=== PATIENT | male | born 1935 | race African-American/Black ===

== ENCOUNTER 2017-01-26 16:16 | Outpatient (CLI) | payer MEDICARE, BC ==
--- NOTE | 2017-01-26 19:28 | CT ---
CT CHEST WITHOUT CONTRAST: Technique: Multiple axial tomograms were obtained through IV enhancement. History: Exam is performed following a low-dose protocol. History is smoker for 18-20 years. Asbestos exposure. History of prostate CA. FINDINGS: Linear stranding is seen in the left lower lobe. There appears to be some associated linear atelectas is. No evidence of significant pulmonary mass or nodule. There is hyperexpansion of the flattened ellen phragms suggesting changes of COPD. Nonspecific mediastinal lymph nodes are noted. There is a supraca rinal lymph node measuring approximately 1.5 cm. Images through the upper abdomen show numerous low d ensity lesions involving the liver indicating hepatic cysts. These have been described previously. IMPRESSION: 1. No evidence of significant pulmonary nodule identified. Chronic atelectasis and stranding in the l eft lower lobe. POS: [facility]
== END 2017-01-26 16:17 | disposition home or self-care (01) ==
LOC: CT 16:16
PROVIDERS: ATTEND Family Medicine
DX: F17.210 Nicotine dependence, cigarettes, uncomplicated (principal); J98.11 Atelectasis
CPT/HCPCS: G0297

== ENCOUNTER 2017-12-17 13:22 | Inpatient (IN) | payer MEDICARE, BC ==
[2017-12-17 13:45] LABS: #Eosinphils 0.1 thou/uL (0.0-0.7); #Lymphocytes 0.7 thou/uL (1.20-3.40); #Monocytes 0.5 thou/uL (0.11-0.59); #Neutrophils 3.5 thou/uL (1.40-6.50); %Basophils 0.2 % (0.0-1.0); %Eosinophils 1.6 % (0.0-10.0); %Lymphocytes 13.7 % (21.0-51.0); %Monocytes 10.9 % (0.0-10.0); %Neutrophils 73.7 % (42.0-75.0); Mean Corpuscular Volume 90.5 fL (78.0-98.0); Mean Platelet Volume 8.8 fL (7.4-10.4); Platelet Count 137 thou/uL (130-400); RBC Distribution Width 14.5 % (11.5-14.5); Red Blood Cell (RBC) Count 4.83 mill/uL (4.70-6.10); White Blood Cell (WBC) Count 4.8 thou/uL (4.8-10.8)
[2017-12-17 13:49] LABS: INR-International Normal Ratio 1.1
[2017-12-17 13:54] LABS: ALT (SGPT) 17 U/L (8-55); AST (SGOT) 16 U/L (5-34); Albumin 4.1 g/dL (3.4-4.8); Alkaline Phosphatase 52 U/L (40-150); Anion Gap 11 mmol/L (10-20); BUN (Urea Nitrogen) 43 mg/dL (8.4-25.7); Bilirubin, Total 0.6 mg/dL (0.2-1.2); CK (CPK) 57 U/L (30-200); Calc. Creatinine Clearance 0 mL/min (70-130); Calcium 9.8 mg/dL (7.8-10.44); Carbon Dioxide 26 mmol/L (23-31); Chloride 111 mmol/L (98-107); Estimated GFR-MDRD 26; Globulin 3.3 g/dL (2.4-3.5); Glucose 122 mg/dL (83-110); Potassium 4.6 mmol/L (3.5-5.1); Protein, Total 7.4 g/dL (5.8-8.1); Sodium 143 mmol/L (136-145)
[2017-12-17 13:58] LABS: CKMB 1.7 ng/mL (0-6.6); Troponin I 0.012 ng/mL (< 0.028)
--- NOTE | 2017-12-17 14:10 | CT ---
CT OF THE BRAIN WITHOUT CONTRAST: Date: 12/17/17 INDICATION: Level II stroke alert for right-sided facial droop that began this morning. COMPARISON: CT of brain dated 06/11/14. FINDINGS: There is diffuse cerebral and cerebellar atrophy, which is stable. 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 No definite acute infarct, hemorrhage, or hydrocephalus is pres ent. The mastoid air cells and paranasal sinuses are clear. The skull is intact. IMPRESSION: No acute intracranial abnormality. Findings called to Dr. Padilla at 1347 hours on 12/17/17. CODE CR. POS: [facility]
--- NOTE | 2017-12-17 15:35 | PDOC.FPRHP ---
- History of Present Illness Chief Complaint: Facial droop History of Present Illness: Mr. Arguelles presents today from home with his daughter after reports of right sided facial droop by home health. Pt is a poor historian, most of the history has been obtained from medical records, EMS, and family. R sided facial droop today, resolved quickly. No residual weakness, syncope, complaints of chest pain/palpitation, reports of numbness/tingling or recent illness. He was recently started on megace for weight loss. he has been on dialysis in the past and received radiation and chemo for prostate cancer. ED Course: CBC, CMP, CT head, coag - Allergies/Adverse Reactions Allergies Allergy/AdvReac Type Severity Reaction Status Date / Time No Known Allergies Allergy Verified 12/17/17 17:15 - Home Medications Medication Instructions Recorded Confirmed Type Amlodipine [Norvasc] 10 mg PO DAILY 02/16/14 12/17/17 History Losartan Potassium [Cozaar] 50 mg PO DAILY 02/16/14 12/17/17 History busPIRone HCl [Buspar] 10 mg PO DAILY 02/16/14 12/17/17 History Atorvastatin Calcium 20 mg PO HS 12/17/17 12/17/17 History Carvedilol 12.5 mg PO DAILY 12/17/17 12/17/17 History Cholecalciferol (Vitamin D3) 2,000 unit PO DAILY 12/17/17 12/17/17 History [Vitamin D3] Ferrous Sulfate [Iron] 325 mg PO DAILY 12/17/17 12/17/17 History Megestrol Acetate [Megace] 40 mg PO DAILY 12/17/17 12/17/17 History Multivit-Min/FA/Lycopen/Lutein 1 each PO DAILY 12/17/17 12/17/17 History [Centrum Silver Men Tablet] Potassium Chloride 10 meq PO DAILY 12/17/17 12/17/17 History Spironolactone [Aldactone] 25 mg PO DAILY 12/17/17 12/17/17 History - History PMHx: HTN, HLD, aneurysm in 2002, prostate cancer, suprapubic catheter PSHx: denies FHx:non-contributory Social:1/3 ppd smoker, no alcohol, no drugs - Review of Systems General: denies: fever/chills, fatigue Eyes: denies: vision changes ENT: denies: nasal congestion, rhinorrhea Respiratory: denies: cough, shortness of breath Cardiovascular: denies: chest pain, palpitation Gastrointestinal: denies: nausea, vomiting, diarrhea, abdominal pain, GI bleeding Genitourinary: denies: dysuria Skin: denies: rashes Musculoskeletal: denies: pain Neurological: denies: numbness, weakness - Vital signs BP: [114/76] HR: [97] RR: [16] Tmax: [98.2] Pox: [100]% on [RA] Wt: [63kg] - Physical Exam Constitutional: NAD, well developed HEENT: normocephalic and atraumatic, EOMI, grossly normal vision, grossly normal hearing, MMM Neck: FROM, trachea midline Chest: no-tender to palpation, no lesions Heart: normal S1/S2, no murmurs/rubs/gallops, other (irregularly irregular rhythm) Lungs: CTAB, no respiratory distress, good air movement, no rales/rhonchi Abdomen: soft, non-tender, bowel sounds present Musculoskeletal: normal structure, normal tone, ROM grossly normal Neurological: no focal deficit, CN II-XII intact, normal sensation, other (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) Skin: no rash/lesions, good turgor Heme/Lymphatic: no unusual bruising or bleeding Psychiatric: normal mood and affect, other (demented) FMR H&P: Results - Labs Result Diagrams: 12/17/17 13:36 12/17/17 13:36 Lab results: WBC 4.8 thou/uL (4.8-10.8) 12/17/17 13:36 Hgb 14.0 g/dL (14.0-18.0) 12/17/17 13:36 Hct 43.7 % (42.0-52.0) 12/17/17 13:36 MCV 90.5 fL (78.0-98.0) 12/17/17 13:36 Plt Count 137 thou/uL (130-400) 12/17/17 13:36 Neutrophils % 73.7 % (42.0-75.0) 12/17/17 13:36 Sodium 143 mmol/L (136-145) 12/17/17 13:36 Potassium 4.6 mmol/L (3.5-5.1) 12/17/17 13:36 Chloride 111 mmol/L (98-107) H 12/17/17 13:36 Carbon Dioxide 26 mmol/L (23-31) 12/17/17 13:36 BUN 43 mg/dL (8.4-25.7) H 12/17/17 13:36 Creatinine 2.86 mg/dL (0.6-1.3) H 12/17/17 13:36 Glucose 122 mg/dL (83-110) H 12/17/17 13:36 Calcium 9.8 mg/dL (7.8-10.44) 12/17/17 13:36 Total Bilirubin 0.6 mg/dL (0.2-1.2) 12/17/17 13:36 AST 16 U/L (5-34) 12/17/17 13:36 ALT 17 U/L (8-55) 12/17/17 13:36 Alkaline Phosphatase 52 U/L (40-150) 12/17/17 13:36 Creatine Kinase 57 U/L (30-200) 12/17/17 13:36 CK-MB (CK-2) 1.7 ng/mL (0-6.6) 12/17/17 13:36 Serum Total Protein 7.4 g/dL (5.8-8.1) 12/17/17 13:36 Albumin 4.1 g/dL (3.4-4.8) 12/17/17 13:36 - EKG Interpretation EKG: irregularly irregular rhythm, no ST elevation FMR H&P: A/P - Problem List (1) TIA (transient ischemic attack) Current Visit: Yes Status: Acute Code(s): G45.9 - TRANSIENT CEREBRAL ISCHEMIC ATTACK, UNSPECIFIED (2) Atrial fibrillation Current Visit: Yes Status: Acute Code(s): I48.91 - UNSPECIFIED ATRIAL FIBRILLATION (3) HTN (hypertension) Current Visit: Yes Status: Acute Code(s): I10 - ESSENTIAL (PRIMARY) HYPERTENSION (4) Prostate CA Current Visit: Yes Status: Acute Code(s): C61 - MALIGNANT NEOPLASM OF PROSTATE (5) Chronic kidney disease Current Visit: Yes Status: Acute Code(s): N18.9 - CHRONIC KIDNEY DISEASE, UNSPECIFIED (6) Weight loss Current Visit: Yes Status: Acute (7) Dementia Current Visit: Yes Status: Acute Code(s): F03.90 - UNSPECIFIED DEMENTIA WITHOUT BEHAVIORAL DISTURBANCE - Plan R sided facial droop, resolved - possible TIA vs residual bells palsy - NIH scale of 1 now, no residual weakness - CT head negative - consider MRI in AM - carotid US and Echo Atrial fibrillation - new onset, asymptomatic - Echo, TSH, Mg - monitor vitals - consider adding metoprolol - speak with family about individualized pt care regarding anti-coagulation Prostate CA - hx of radiation and chemo - palliative/cm consult for placement HTN - continue home medications CKD - Cr. 2.84, increased from baseline - avoid nephrotoxic meds, continue to monitor Weight loss - consider DCing megace - palliative consult Dementia - attempt to speak with daughter regarding code status and placement Code: full (follow up with daughter) ppx: [facility] Disposition/LOS: admit to tele, anti-coagulation not deemed to be indicated at this point possibly contraindicated 2/2 fall risk FMR H&P: Upper Level - Pertinent history This is an 82 yo M who comes in for R sided facial droop as reported by family. Patient is a poor historian with a history of dementia, as such history is taken from the chart. Patient was able to walk 15 steps on arrival to ED. Patient denied N/V/D, SOB, or chest pain. R sided facial droop onset this morning. 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 Family also states patient had a brain aneurysm in 2012. Chart review shows patient has undergone chemo and radiation for prostate cancer and had a suprapubic cath in for 5 years. He was started on megace for weight loss. - Pertinent findings General: NAD, alert and oriented x3 HEENT: PERRLA, EOMI, normal sclera, canal is without erythema or lesion Neck: Supple. Full ROM. Heart/Cardiovascular System: No r/m/g. irregularly irregular rhythm. Cap refill < 3 seconds, good pulses in all extremities Lungs/Respiratory System: clear to auscultation bilaterally. No increased work of breathing. Room air. Abdomen/Gastro-Intestinal System: non-tender, normal bowel sounds, no masses, no organomegaly Extremeties: Warm extremities. No cyanosis or edema. Neuro: L sided facial droop is chronic. strategic manager strength equal bilaterally. lifts leg off bed on both sides. Psychiatry: Awake, Alert and cooperative with exam Skin/ Integumentory: No lesions, rashes, or ulcers Musculoskeletal: Full ROM, Strength 5/5 in all 4 extremities - Plan Date/Time: 12/17/171532 I, Byron Villaseñor MD, have evaluated this patient and agree with findings/plan as outlined by internet ecommerce specialist resident. Pertinent changes/additions are listed here. # R sided facial droop - NIH 1 on arrival to ED - CT head negative - Neuro exam reassuring - permissive htn for 24 hrs # Atrial fibrillation - HR 80s-100s - new onset - metoprolol - echo, mag, tsh - telemetry # Prostate Cancer - history of chemo and radiation x2 - suprapubic cath for 5 years # HTN - coreg at home - hold for now, permissive htn # CKD - Cr2.84, 2.4 one month ago # Weight loss - daily weights - on megace, will hold for now # Dementia - MMSE 02/28 in August - family not available, did not answer phone call Code: full, family not available Fluids: none Diet: ST eval Dispo: 1-2 days Attending Addendum - Attending Addendum Date/Time: 12/17/172035 I personally evaluated the patient and discussed the management with Dr. Gregorio and Charleen. I agree with and repeated the History, Examination, Assessment and Plan documented above with any addition or exceptions noted below.
[2017-12-17] MEDS ORDERED: Enoxaparin Sodium 60 MG/0.6 ML SYRINGE ONE (15:44)
[2017-12-17] MEDS ORDERED: Acetaminophen 325 MG TAB PO PRN (17:06)
[2017-12-17 17:28] LABS: Troponin I 0.016 ng/mL (< 0.028)
[2017-12-17 17:47] VITALS: BMI 19.8
--- NOTE | 2017-12-17 19:52 | ULT ---
CAROTID DUPLEX SONOGRAM: 12/17/17 HISTORY: Vascular disease. TIA. FINDINGS: RIGHT: Color and spectral doppler evaluation, peak systolic velocity of 39 cm/s and IC to CC ratio suggests no hemodynamically significant stenosis within the extracranial right ICA. Antegrade flow within the vertebral artery. LEFT: Minimal plaque. Color and spectral doppler evaluation, peak systolic velocity of 45 cm/s and IC to CC ratio of 1.0 suggests no hemodynamically significant stenosis within the extracranial left ICA. Ante grade flow within the vertebral artery. IMPRESSION: No significant plaque. No sonographic evidence of significant extracranial ICA stenosis. POS: [facility]
--- NOTE | 2017-12-17 19:58 | PDOC.EVN ---
Event Note - Event Note Event Note: HAS-BLED 3- high risk for bleeding ppx heparin <Byron Villaseñor - Last Filed: 12/17/17 19:56> - Event Note Event Note: Agree with above. Melia <Theresa Espitia - Last Filed: 12/18/17 03:35>
[2017-12-17] MEDS: Heparin 5,000 UNITS/ML VIAL SC SCH (20:41)
[2017-12-18 05:43] LABS: Cardiac Risk 4.2 (Less than 4.5)
--- NOTE | 2017-12-18 06:22 | PDOC.FM ---
- Subjective Subjective: Mr. Arguelles is resting comfortably in bed, he has no complaints at this time and would like to go home. - Objective Vital Signs & Weight: Vital Signs (12 hours) Temp Pulse Resp BP Pulse Ox 12/18/17 04:00 98.7 F 112 H 16 122/85 94 L 12/18/17 00:00 99.4 F 85 20 125/67 96 12/17/17 20:00 99.3 F 95 24 H 120/73 97 Weight Weight 62.596 kg I&O: 12/16/17 12/17/17 12/18/17 06:59 06:59 06:59 Intake Total 180 Balance 180 Result Diagrams: 12/17/17 13:36 12/17/17 13:36 Phys Exam - Physical Examination Constitutional: NAD HEENT: moist MMs Respiratory: clear to auscultation bilateral Cardiovascular: no significant murmur, no rub, irregular Gastrointestinal: soft, no distention Musculoskeletal: no edema, pulses present Psychiatric: normal affect Skin: no rash Dx/Plan (1) TIA (transient ischemic attack) Code(s): G45.9 - TRANSIENT CEREBRAL ISCHEMIC ATTACK, UNSPECIFIED Status: Acute (2) Atrial fibrillation Code(s): I48.91 - UNSPECIFIED ATRIAL FIBRILLATION Status: Acute (3) HTN (hypertension) Code(s): I10 - ESSENTIAL (PRIMARY) HYPERTENSION Status: Acute (4) Prostate CA Code(s): C61 - MALIGNANT NEOPLASM OF PROSTATE Status: Acute (5) Chronic kidney disease Code(s): N18.9 - CHRONIC KIDNEY DISEASE, UNSPECIFIED Status: Acute (6) Weight loss Status: Acute (7) Dementia Code(s): F03.90 - UNSPECIFIED DEMENTIA WITHOUT BEHAVIORAL DISTURBANCE Status: Acute - Plan Plan: R sided facial droop, resolved - possible TIA vs residual bells palsy - NIH scale of 1 now, no residual weakness - CT head negative - carotid US negative for stenosis Atrial fibrillation - new onset, asymptomatic - Echo, TSH, Mg - monitor vitals - consider adding metoprolol - speak with family about individualized pt care regarding anti-coagulation, heparin ppx for now Prostate CA - hx of radiation and chemo - palliative/cm consult for placement HTN - continue home medications CKD - Cr. 2.84, increased from baseline - avoid nephrotoxic meds, continue to monitor Weight loss - DC megace - palliative consult Dementia - attempt to speak with daughter regarding code status and placement Code: full (follow up with daughter) ppx: hep Dispo: poss DC today
[2017-12-18] MEDS ORDERED: Carvedilol 6.25 MG TAB PO SCH ×3 (09:06→12:00)
[2017-12-18] MEDS: Heparin 5,000 UNITS/ML VIAL SC SCH ×2 (09:17→20:39)
[2017-12-18] MEDS ORDERED: Multivitamin W/ Minerals 1 TAB PO SCH (09:30)
[2017-12-18] MEDS ORDERED: busPIRone HCl 10 MG TAB PO SCH (09:30)
[2017-12-18] MEDS ORDERED: Megestrol Acetate 40 MG TAB PO SCH (09:30)
[2017-12-18] MEDS ORDERED: Ferrous Sulfate 325 MG TAB PO SCH (09:30)
[2017-12-18] MEDS ORDERED: Spironolactone 25 MG TAB PO SCH (09:30)
[2017-12-18] MEDS ORDERED: Potassium Chloride 10 MEQ TAB PO SCH (09:30)
--- NOTE | 2017-12-18 11:38 | PRG ---
DATE OF SERVICE: 12/18/2017 Mr. Arguelles is a pleasant 82-year-old black male patient who was admitted with a possible right facial droop which evidently has resolved. On my exam he does, however, still appear to have a right facial droop, but I am not certain whether this is new or old. In any event, I think we will wait and proc eed with a TIA type workup to include studies of the brain vasculature as well as the carotids. He h ad also developed some atrial fibrillation and so an echo is in order. In the meantime, we need to m prabhakar a decision with the family and the patient regarding using ____ versus aspirin for his atrial fib rillation. He evidently has a rather high HAS-BLED score and high CHADS-VASc score. We will at leas t place him on aspirin, atorvastatin, and control blood pressure for his likely transient ischemic at tack. We will proceed with an MRI to rule out stroke.
--- NOTE | 2017-12-18 13:10 | CON ---
DATE OF CONSULTATION: 12/18/2017 CONSULTING PHYSICIAN: Merly Gastelum M.D. REQUESTING PHYSICIAN: [facility]. REASON FOR CONSULTATION: Advanced chronic kidney disease. IMPRESSION: 1. Advanced chronic kidney disease stage 4, more or less stable with a slight elevation in the creat inine. 2. Acute on chronic kidney disease. This is likely hemodynamically mediated in the context of cardi ac arrhythmia. 3. Chronic hypokalemia on potassium supplementation, stable at this point. PLAN: 1. Atrial fibrillation with rapid ventricular response really needs to be addressed. Patient, at th is point is not rate controlled. The patient's heart rate still in the 120-130 range and patient is very symptomatic. We will strongly recommend Cardiology consultation as well as adjustment in the an tiarrhythmic agents that has been used at this point as patient is still very short of breath. 2. Renally dose all medications per low GFR and avoid potentially nephrotoxic agents. 3. Further management to be dependent on the clinical course. HISTORY OF PRESENT ILLNESS: An 82-year-old gentleman known to my chronic kidney disease clinic who h as maintained a stable chronic kidney disease level for quite some time. The patient presented here with shortness of breath and noted to be in atrial fibrillation with rapid ventricular response. At this time of dictation, the patient is still very symptomatic, unable to complete a full sentence, us ing accessory muscles for breathing. The patient presented with a facial droop and incidentally foun d to be in atrial fibrillation with rapid ventricular response. Otherwise, no other significant late ralizing sign at this point. PAST MEDICAL HISTORY: Significant for chronic kidney disease stage 4, hypertension, dyslipidemia, pr ostate cancer status post suprapubic catheter due to chronic obstructive uropathy. MEDICATIONS: Reviewed and as documented on [employer]. SOCIAL HISTORY: Significant for tobacco use. No alcohol, no illicit drug use. REVIEW OF SYSTEMS: As documented in the body of the history. All the other systems were reviewed an d found not to be significantly related to presenting illness. PHYSICAL EXAMINATION: GENERAL: The patient was found to be in some respiratory distress, noted with the following vital si gns. VITAL SIGNS: Blood pressure 131/89, afebrile, temperature 98.5, pulse 86, respiratory rate 16, O2 sa t 98%. HEENT: Unremarkable. CARDIOVASCULAR SYSTEM: First and second heart sounds were heard. RESPIRATORY SYSTEM: Clear to auscultation anteriorly. DIGESTIVE SYSTEM: Reviewed a benign abdomen. EXTREMITIES: No peripheral edema. SUMMARY: An 82-year-old gentleman with advanced chronic kidney disease stage 4, who presented here w ith facial droop and noted to be in atrial fibrillation with rapid ventricular response. Thank you for this consultation. We will follow with you.
[2017-12-18] MEDS ORDERED: Lorazepam 0.5 MG TAB PO PRN (14:31)
[2017-12-18] MEDS: Carvedilol 6.25 MG TAB PO SCH (17:11)
--- NOTE | 2017-12-18 20:16 | MRI ---
MRI OF BRAIN WITHOUT CONTRAST: 12/18/17 HISTORY: Right sided facial droop since this morning. History of left sided palsy. COMPARISON: None. CORRELATION: Noncontrast head CT 12/17/17. FINDINGS: There are small areas of hypointensity involving the left frontal, right temporal subcortical white m atter along with the right periventricular white matter, left caudate nucleus, left brachium pontis w hich are presumed to be due to hemosiderin deposition from remote hemorrhagic lacunar infarcts. A rem ote lacunar infarct is also suspected in the medial left cerebellar hemisphere. No evidence of acute parenchymal hemorrhage. No midline shift. Basilar cisterns are patent. No parenchymal mass. Age appropriate atrophy. Chronic small vessel ischemic changes are noted. Central arterial flow voids are maintained. Absent restricted diffusion. Mild mucosal thickening of the sinuses. The calvarium has a normal T1 marrow signal intensity. Midline brain parenchymal structures are unrem arkable. IMPRESSION: 1. Age appropriate atrophy. 2. Chronic small vessel ischemic changes of the white matter. 3. Absent restricted diffusion. 4. No acute infarct. POS: [facility]
[2017-12-18] MEDS: Atorvastatin Calcium 20 MG TAB PO SCH (20:39)
--- NOTE | 2017-12-18 23:41 | CON ---
DATE OF CONSULTATION: 12/18/2017 INDICATION FOR CONSULTATION: Atrial fibrillation with rapid ventricular response. HISTORY OF PRESENT ILLNESS: This is an 82-year-old patient who was admitted after the home healthcar e worker noticed that he was having some right-sided facial twitching and was brought to the emergenc y room. He was then admitted with rule out stroke protocol. There has been no new stroke. He has h ad a history of Lee's palsy in the past. 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 He has had some minimal residual associated with this. He did have CT scan which did not show any new e vents. I believe he is scheduled for an MRI or perhaps it has already been done, but did not see the results yet. At that time he was admitted, he had atrial fibrillation with rapid ventricular respon se. In the interim, he has converted to normal sinus rhythm this afternoon. His rate is under reaso nable control at this time, the heart rate is approximately 83 beats per minute. There were no acute ST segment changes noted. At this time, he is comfortable and he is eating dinner. He has had no p revious cardiac history except for hypertension. For his past medical history, social history, review of systems, medications and allergies, refer to notes already dictated by the nurse practitioner. PAST MEDICAL HISTORY: Briefly, his past medical history is associated with chronic kidney disease. He has a suprapubic catheter. He had a prostate obstruction. After the suprapubic catheter was plac ed, he was able to avoid the dialysis. At this time, he may still not on dialysis and may escape thi s entirely as long as he has his catheter placed. He also has a history of hypokalemia which has bee n an ongoing problem. He has a history of cerebral aneurysm which ruptured in the past. He also has a history of dyslipidemia. PHYSICAL EXAMINATION: GENERAL: Reveals a well-developed, well-nourished, very pleasant gentleman who is in no acute distre ss at this time. He is alert, he is oriented. He is eating dinner. VITAL SIGNS: Blood pressure is elevated at 143/91 and then recheck was 155/100; earlier today, blood pressure was 130/79. His temperature is 99.1, heart rate 85 and regular at this time, respiratory r ate 16. HEENT: Shows head to be normocephalic and atraumatic. He did not hear any significant bruits. CHEST: Clear to auscultation without rales, rhonchi or wheezing. CARDIOVASCULAR: Exam reveals a regular rate and rhythm, normal S1, S2. I cannot hear an S3 nor an S 4. He has no significant murmurs, heaves, thrills, bruits or rubs. ABDOMEN: Soft and nontender. Positive bowel sounds are present. EXTREMITIES: Show no clubbing, cyanosis or edema. NEUROLOGIC: I did not see any gross focal motor deficits at this time. SKIN: Warm and dry. IMAGING: EKG at this time from tele monitor shows a sinus rhythm. LABORATORY DATA: Shows a hemoglobin of 14, WBC of 4.8. His troponin I's are negative for myocardial infarction. MB is 1.7. Cholesterol shows an LDL of 94, blood sugars in the 90s. Potassium is 4.6, creatinine is 2.86 with a BUN of 43. His creatinine usually runs anywhere between 1.94 and 1.82 christy k in 2011; recently has been in 2.29-2.86, but otherwise appears to be stable. IMPRESSION: 1. New onset atrial fibrillation with rapid ventricular response, which has converted back to a norm al sinus rhythm. He is on beta-blockers in the form of carvedilol 12.5 mg b.i.d. He has also been g iven beta blockers, but these are discontinued. Previously, he was on metoprolol. This is now in [facility]. just remains on the Coreg. He is also on spironolactone and atorvastatin. At this time, I w ould continue the present medications. Should he develop further atrial arrhythmias or atrial fibril lation, we may need to add a more potent antiarrhythmic medication such as amiodarone in this gentlem an. He is not a candidate from multiple other antiarrhythmics due to his renal failure. 2. Hypertension. We will leave this up to discretion of the reports analyst to deal with his hypertens ion. He may benefit from undergoing stress testing to rule out evidence for underlying coronary truong ry disease as the possible etiology of the atrial fibrillation. He has an echocardiogram scheduled. We will evaluate the echocardiogram to see whether or not there is any cardiomyopathy or structural abnormalities. Otherwise, he appears to be relatively stable from a cardiac standpoint at this time. He has also been given heparin 5000 units b.i.d. He may need to start oral anticoagulation, would advise either Coumadin or Xarelto in this patient, but with a history of an intracerebral bleed in th e past, we will need to certainly consider whether or not he is at increased risk of bleed versus inc reased risk of having a CVA with the atrial fibrillation and not being on oral anticoagulation, may n eed to undergo a discussion with a neurologist to determine whether or not he is a safe candidate to start oral anticoagulation. Once we reviewed the results of these stress tests, the echocardiogram t hat we may need to proceed with stress testing in this gentleman.
--- NOTE | 2017-12-19 06:17 | PDOC.FM ---
- Subjective Subjective: Mr. Arguelles is resting comfortably in bed, he has no complaints at this time and would like to go home. - Objective MAR Reviewed: Yes Vital Signs & Weight: Vital Signs (12 hours) Temp Pulse Resp BP Pulse Ox 12/19/17 03:55 87 16 129/69 98 12/18/17 23:17 99.3 F 94 21 H 138/84 96 12/18/17 19:20 98.4 F 95 24 H 113/80 98 Weight Weight 62.596 kg I&O: 12/17/17 12/18/17 12/19/17 06:59 06:59 06:59 Intake Total 690 480 Output Total 875 Balance 690 -395 Result Diagrams: 12/17/17 13:36 12/17/17 13:36 <Margot Borja - Last Filed: 12/19/17 09:29> - Objective Vital Signs & Weight: Vital Signs (12 hours) Temp Pulse Resp BP Pulse Ox 12/19/17 11:30 98.5 F 112 H 20 112/79 96 12/19/17 09:33 93 20 98 12/19/17 07:34 98.5 F 120 H 20 132/88 100 12/19/17 03:55 87 16 129/69 98 Weight Weight 62.596 kg I&O: 12/18/17 12/19/17 12/20/17 06:59 06:59 06:59 Intake Total 690 660 Output Total 875 Balance 690 -215 Result Diagrams: 12/17/17 13:36 12/19/17 08:31 <Tenzin Jarrell - Last Filed: 12/19/17 13:23> Phys Exam - Physical Examination Constitutional: NAD HEENT: moist MMs Respiratory: no wheezing, clear to auscultation bilateral Cardiovascular: RRR, no significant murmur, no rub Gastrointestinal: soft, non-tender, no distention, positive bowel sounds Musculoskeletal: pulses present Neurological: moves all 4 limbs Psychiatric: normal affect <Margot Borja - Last Filed: 12/19/17 09:29> Dx/Plan (1) Atrial fibrillation Code(s): I48.91 - UNSPECIFIED ATRIAL FIBRILLATION Status: Acute (2) Chronic kidney disease Code(s): N18.9 - CHRONIC KIDNEY DISEASE, UNSPECIFIED Status: Acute (3) Dementia Code(s): F03.90 - UNSPECIFIED DEMENTIA WITHOUT BEHAVIORAL DISTURBANCE Status: Acute (4) HTN (hypertension) Code(s): I10 - ESSENTIAL (PRIMARY) HYPERTENSION Status: Acute (5) Prostate CA Code(s): C61 - MALIGNANT NEOPLASM OF PROSTATE Status: Acute (6) TIA (transient ischemic attack) Code(s): G45.9 - TRANSIENT CEREBRAL ISCHEMIC ATTACK, UNSPECIFIED Status: Acute (7) Weight loss Status: Acute - Plan Plan: This is an 82 yo M here for right facial droop that has since resolved and new onset afib. R sided facial droop, resolved - possible TIA vs residual bells palsy - NIH scale of 1 now, no residual weakness - CT head negative - carotid US negative for stenosis Atrial fibrillation - new onset, asymptomatic - Echo: 45-50% EF, trace MR and TR - Will continue to monitor VS - Cardiology consulted, appreciate recs: Dr. Marroquin states to keep with medication regimen of spironolactone, coreg, and statin. Consider stress testing. Patient in afib/flutter throughout the night. Cards saw this morning and started patient on amio PO. - speak with family about individualized pt care regarding anti-coagulation, heparin ppx for now Prostate CA - hx of radiation and chemo - palliative/cm consult for placement HTN - continue home medications CKD - Cr. 2.84 on admission, increased from baseline - avoid nephrotoxic meds, continue to monitor Weight loss - DC megace - palliative consult Dementia - attempt to speak with daughter regarding code status and placement Code: full (follow up with daughter) ppx: hep Dispo: per cards recs <Margot Borja - Last Filed: 12/19/17 09:29> Attending Addendum - Attending Addendum Date/Time: 12/19/17 1323 I personally evaluated the patient and discussed the management with Dr. Borja I agree with the History, Examination, Assessment and Plan documented above with any addition or exceptions noted below. Appreciate recommendations from Cardiology. <Tenzin Jarrell - Last Filed: 12/19/17 13:23>
--- NOTE | 2017-12-19 08:39 | PDOC.CTH ---
Cardiology Progress Note - Subjective The pt seen and examined. No cardiac complaints at this time. Tele record showed HR has been 90-150s. - Objective Vital Signs Temp Pulse Resp BP Pulse Ox 12/19/17 07:34 98.5 F 120 H 20 132/88 100 12/19/17 03:55 87 16 129/69 98 12/18/17 23:17 99.3 F 94 21 H 138/84 96 Weight 138 lb 12/18/17 12/19/17 12/20/17 06:59 06:59 06:59 Intake Total 690 660 Output Total 875 Balance 690 -215 - Physical Examination General/Neuro: other: (self) Lungs: CTA Heart: other: (irregular) Abdomen: soft Extremities: other: (No edema) - Telemetry Telemetry Rhythm: Afib 90-150s - Labs Result Diagrams: 12/17/17 13:36 12/17/17 13:36 Troponin/CKMB CK-MB (CK-2) 1.7 ng/mL (0-6.6) 12/17/17 13:36 Troponin I 0.016 ng/mL (< 0.028) 12/17/17 16:56 - Assessment/Plan 1. Afib with RVR - HR has been 90-150s last night. Will start Amiodarone PO 400mg BID for 2wks, 200mg BID for 2wks, then change to 200mg qd. On Heparin BID ; He has Hx of Cerebral aneurysm with raptured in 2002 2. Rt sided facial droop/bells palsy? 3. HTN - stable with current meds 4. 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 Hx of Cerebral aneurysm with raptured in 2002 - 6. Prostate Ca with suprapubic cath - 7. Dementia MAR reviewed * Echo on 12/18/17 showed EF 45-50%, trace MR, trace TR, mild VA, small pericardial effusion, and AFib. Review of Systems - Review of Systems Constitutional: reports: no symptoms reported EENTM: reports: no symptoms reported Respiratory: reports: no symptoms reported Cardiac (ROS): reports: no symptoms reported ABD/GI: reports: no symptoms reported : reports: no symptoms reported Musculoskeletal: reports: no symptoms reported Skin: reports: no symptoms reported
[2017-12-19] MEDS ORDERED: Ferrous Sulfate 325 MG TAB PO SCH (09:00)
[2017-12-19] MEDS ORDERED: Megestrol Acetate 40 MG TAB PO SCH (09:00)
[2017-12-19] MEDS ORDERED: Carvedilol 6.25 MG TAB PO SCH ×2 (09:00)
[2017-12-19 09:14] LABS: Albumin 3.2 g/dL (3.4-4.8); Anion Gap 9 mmol/L (10-20); BUN (Urea Nitrogen) 47 mg/dL (8.4-25.7); BUN/Creatinine Ratio 18.15; Calc. Creatinine Clearance 20 mL/min (70-130); Carbon Dioxide 24 mmol/L (23-31); Chloride 112 mmol/L (98-107); Estimated GFR-MDRD 29; Glucose 96 mg/dL (83-110); Phosphorus 2.7 mg/dL (2.3-4.7); Potassium 4.6 mmol/L (3.5-5.1); Sodium 140 mmol/L (136-145)
[2017-12-19] MEDS: Potassium Chloride 10 MEQ TAB PO SCH (09:27)
[2017-12-19] MEDS: Multivitamin W/ Minerals 1 TAB PO SCH (09:27)
[2017-12-19] MEDS: Spironolactone 25 MG TAB PO SCH (09:27)
[2017-12-19] MEDS: Carvedilol 6.25 MG TAB PO SCH ×2 (09:28→17:52)
[2017-12-19] MEDS: busPIRone HCl 10 MG TAB PO SCH (09:28)
[2017-12-19] MEDS: Heparin 5,000 UNITS/ML VIAL SC SCH ×2 (09:29→20:35)
--- NOTE | 2017-12-19 18:06 | PRG ---
DATE OF SERVICE: 12/19/2017 SUBJECTIVE: The patient was seen and examined, seems to be doing much better today, noted with the f ollowing vital signs. PHYSICAL EXAMINATION: VITAL SIGNS: Afebrile, temperature 98.5, pulse 99-112, respiratory rate of 20, O2 sat of 96%, blood pressure 134/86. NECK: Unremarkable. CARDIOVASCULAR: First and second heart sounds were heard. RESPIRATORY: Clear to auscultation. DIGESTIVE: Revealed a benign abdomen with positive bowel sounds. EXTREMITIES: No peripheral edema. SKIN: No new gross rash. LYMPHATICS: No peripheral lymphadenopathy. LABORATORY INVESTIGATIONS: Revealed the following, creatinine 2.59, BUN of 47. IMPRESSION: 1. Atrial fibrillation with rapid ventricular response, seems to be suboptimally controlled. 2. Acute on chronic kidney disease, which is much improved. PLAN: 1. Continue renal supportive measures and renally dose all medications. 2. Cardiac workup by Cardiology, patient seems to possibly undergo echocardiogram. 3. Defer the use of antiarrhythmic agents to Cardiology. 4. Further management to be dependent on the clinical course.
[2017-12-19] MEDS: Atorvastatin Calcium 20 MG TAB PO SCH (20:35)
[2017-12-19] MEDS ORDERED: Amiodarone 200 MG TAB PO SCH (21:45)
--- NOTE | 2017-12-20 06:23 | PDOC.FM ---
- Subjective Subjective: Patient is resting comfortably in bed. He has no complaints or concerns. Denies chest pain, palpitations, SOB, LE swelling, or NVD. - Objective Vital Signs & Weight: Vital Signs (12 hours) Temp Pulse Resp BP Pulse Ox 12/20/17 04:12 98.9 F 81 16 136/84 98 12/19/17 23:25 98.7 F 99 14 116/71 96 12/19/17 19:25 98.8 F 80 24 H 115/75 98 12/19/17 19:20 98 Weight Weight 62.596 kg I&O: 12/18/17 12/19/17 12/20/17 06:59 06:59 06:59 Intake Total 690 660 Output Total 875 Balance 690 -215 Result Diagrams: 12/17/17 13:36 12/19/17 08:31 <Margot Borja - Last Filed: 12/20/17 13:07> - Objective Vital Signs & Weight: Vital Signs (12 hours) Temp Pulse Resp BP Pulse Ox 12/20/17 15:56 98.8 F 75 20 156/89 H 98 12/20/17 11:42 98.5 F 78 18 135/84 99 12/20/17 09:48 80 143/80 H 12/20/17 07:25 98.1 F 79 18 133/81 98 Weight Weight 62.596 kg I&O: 12/19/17 12/20/17 12/21/17 06:59 06:59 06:59 Intake Total 660 Output Total 875 Balance -215 Result Diagrams: 12/17/17 13:36 12/19/17 08:31 <Tenzin Jarrell - Last Filed: 12/20/17 16:56> Phys Exam - Physical Examination Constitutional: NAD HEENT: moist MMs Neck: full ROM Respiratory: clear to auscultation bilateral Cardiovascular: no significant murmur irregularly irregular Gastrointestinal: soft, non-tender, no distention, positive bowel sounds Musculoskeletal: no edema Neurological: non-focal, moves all 4 limbs Psychiatric: normal affect, A&O x 3 Skin: no rash <Margot Borja - Last Filed: 12/20/17 13:07> Dx/Plan (1) Atrial fibrillation Code(s): I48.91 - UNSPECIFIED ATRIAL FIBRILLATION Status: Acute (2) Chronic kidney disease Code(s): N18.9 - CHRONIC KIDNEY DISEASE, UNSPECIFIED Status: Acute (3) Dementia Code(s): F03.90 - UNSPECIFIED DEMENTIA WITHOUT BEHAVIORAL DISTURBANCE Status: Acute (4) HTN (hypertension) Code(s): I10 - ESSENTIAL (PRIMARY) HYPERTENSION Status: Acute (5) Prostate CA Code(s): C61 - MALIGNANT NEOPLASM OF PROSTATE Status: Acute (6) TIA (transient ischemic attack) Code(s): G45.9 - TRANSIENT CEREBRAL ISCHEMIC ATTACK, UNSPECIFIED Status: Acute (7) Weight loss Status: Acute - Plan Plan: This is an 82 yo M here for right facial droop that has since resolved and new onset afib. Atrial fibrillation - new onset, asymptomatic - Pt converted to normal sinus around 0140, HR 80s - Echo: 45-50% EF, trace MR and TR - Will continue to monitor VS - Cardiology consulted, appreciate recs: Will start Amiodarone PO 400mg BID for 2wks, 200mg BID for 2wks, then change to 200mg qd. Possible stress test. Will discuss with cards. - speak with family about individualized pt care regarding anti-coagulation (pt hx of aneurysm rupture), heparin ppx for now R sided facial droop, resolved - possible TIA vs residual bells palsy - NIH scale of 1 now, no residual weakness - CT head negative - carotid US negative for stenosis Prostate CA - hx of radiation and chemo - palliative/cm consult for placement HTN - continue home medications CKD - Cr. 2.84 on admission, increased from baseline - avoid nephrotoxic meds, continue to monitor Weight loss - DC megace - palliative consult Dementia - attempt to speak with daughter regarding code status and placement Code: full (follow up with daughter) ppx: hep Dispo: per cards recs; possible stress or d/c later today <Margot Borja - Last Filed: 12/20/17 13:07> Attending Addendum - Attending Addendum Date/Time: 12/20/17 6542 I personally evaluated the patient and discussed the management with Dr. Borja I agree with the History, Examination, Assessment and Plan documented above with any addition or exceptions noted below. Continue to explore need further cardiac risk stratification and need/ candidacy for DAOC/VITK antagonist given history prior cerebral aneursym. <Tenzin Jarrell - Last Filed: 12/20/17 16:56>
[2017-12-20] MEDS: Multivitamin W/ Minerals 1 TAB PO SCH (09:14)
[2017-12-20] MEDS: Amiodarone 200 MG TAB PO SCH ×2 (09:15→20:53)
[2017-12-20] MEDS: Carvedilol 6.25 MG TAB PO SCH ×2 (09:15→17:41)
[2017-12-20] MEDS: busPIRone HCl 10 MG TAB PO SCH (09:15)
[2017-12-20] MEDS: Spironolactone 25 MG TAB PO SCH (09:16)
[2017-12-20] MEDS: Heparin 5,000 UNITS/ML VIAL SC SCH ×2 (09:16→20:53)
[2017-12-20] MEDS: Potassium Chloride 10 MEQ TAB PO SCH (09:16)
--- NOTE | 2017-12-20 09:30 | PDOC.CTH ---
<Christelle Gonzalez - Last Filed: 12/20/17 18:14> Cardiology Progress Note - Subjective The pt seen and examined. No overnight events. No cardiac complaints. He converted back to SR around 0140 on 12/20/17. - Objective Vital Signs Temp Pulse Resp BP Pulse Ox 12/20/17 07:25 98.1 F 79 18 133/81 98 12/20/17 04:12 98.9 F 81 16 136/84 98 12/19/17 23:25 98.7 F 99 14 116/71 96 Weight 138 lb 12/19/17 12/20/17 12/21/17 06:59 06:59 06:59 Intake Total 660 Output Total 875 Balance -215 - Physical Examination General/Neuro: other: (confused) Lungs: CTA Heart: RRR Abdomen: soft Extremities: other: (No edema) - Telemetry Telemetry Rhythm: SR 60-70s - Labs Result Diagrams: 12/17/17 13:36 12/19/17 08:31 Troponin/CKMB CK-MB (CK-2) 1.7 ng/mL (0-6.6) 12/17/17 13:36 Troponin I 0.016 ng/mL (< 0.028) 12/17/17 16:56 - Assessment/Plan 1. Afib with RVR - He converted back to SR around 0140 on 12/20/17. HR has been 60-70s with SR with Amiodarone PO 400mg BID for 2wks, 200mg BID for 2wks, then change to 200mg qd. On Heparin BID; He has Hx of Cerebral aneurysm with raptured in 2002 2. Rt sided facial droop/bells palsy? 3. HTN - stable with current meds 4. 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 Hx of Cerebral aneurysm with raptured in 2002 - 6. Prostate Ca with suprapubic cath - 7. Dementia MAR reviewed * Echo on 12/18/17 showed EF 45-50%, trace MR, trace TR, mild VA, small pericardial effusion, and AFib. * The pt will have Stress test tomorrow. Review of Systems - Review of Systems Constitutional: reports: no symptoms reported EENTM: reports: no symptoms reported Respiratory: reports: no symptoms reported Cardiac (ROS): reports: no symptoms reported ABD/GI: reports: no symptoms reported : reports: no symptoms reported Musculoskeletal: reports: no symptoms reported <Qamar Marroquin - Last Filed: 12/20/17 22:37> Cardiology Progress Note - Objective Vital Signs Temp Pulse Resp BP Pulse Ox 12/20/17 20:00 98.4 F 76 18 150/89 H 98 12/20/17 19:45 98 12/20/17 15:56 98.8 F 75 20 156/89 H 98 12/20/17 11:42 98.5 F 78 18 135/84 99 Weight 138 lb 12/19/17 12/20/17 12/21/17 06:59 06:59 06:59 Intake Total 660 Output Total 875 Balance -215 - Labs Result Diagrams: 12/17/17 13:36 12/19/17 08:31 Troponin/CKMB CK-MB (CK-2) 1.7 ng/mL (0-6.6) 12/17/17 13:36 Troponin I 0.016 ng/mL (< 0.028) 12/17/17 16:56 - Assessment/Plan Pt. seen and evaluated by me. I agree with the A/P by the [employer]. We have discussed the pt. and the plan.Chest clear RRR. Will need to discuss with Neurologists the risk involved with OAC and history of intracerebral bleed.
[2017-12-20] MEDS: Atorvastatin Calcium 20 MG TAB PO SCH (20:53)
--- NOTE | 2017-12-21 05:18 | PDOC.FM ---
- Subjective Subjective: NAEO. Patient denies any palpitations, chest pain, SOB, N/V, or diarrhea. Patient states he feels well this AM and has no complaints. Was resting comfortably in bed in NAD. - Objective MAR Reviewed: Yes Vital Signs & Weight: Vital Signs (12 hours) Temp Pulse Resp BP Pulse Ox 12/21/17 03:20 98.2 F 73 16 156/83 H 98 12/21/17 00:00 98.5 F 69 18 138/80 98 12/20/17 20:00 98.4 F 76 18 150/89 H 98 12/20/17 19:45 98 Weight Weight 64.41 kg I&O: 12/19/17 12/20/17 12/21/17 06:59 06:59 06:59 Intake Total 660 240 Output Total 875 300 Balance -215 -60 Result Diagrams: 12/17/17 13:36 12/19/17 08:31 <Tiffany Yang - Last Filed: 12/21/17 08:35> - Objective Vital Signs & Weight: Vital Signs (12 hours) Temp Pulse Resp BP Pulse Ox 12/21/17 07:28 98.9 F 76 20 168/91 H 100 12/21/17 03:20 98.2 F 73 16 156/83 H 98 12/21/17 00:00 98.5 F 69 18 138/80 98 Weight Weight 64.41 kg I&O: 12/20/17 12/21/17 12/22/17 06:59 06:59 06:59 Intake Total 240 Output Total 300 Balance -60 Result Diagrams: 12/17/17 13:36 12/19/17 08:31 <Arsalan Ng - Last Filed: 12/21/17 11:42> Phys Exam - Physical Examination Constitutional: NAD HEENT: moist MMs Neck: supple, full ROM Respiratory: no wheezing, no rales, no rhonchi, clear to auscultation bilateral Cardiovascular: RRR, no significant murmur Gastrointestinal: soft, non-tender, no distention, positive bowel sounds Musculoskeletal: no edema, pulses present Neurological: non-focal, normal sensation, moves all 4 limbs Psychiatric: normal affect Skin: no rash, normal turgor, cap refill <2 seconds <Tiffany Yang - Last Filed: 12/21/17 08:35> Dx/Plan (1) Atrial fibrillation Code(s): I48.91 - UNSPECIFIED ATRIAL FIBRILLATION Status: Acute (2) Chronic kidney disease Code(s): N18.9 - CHRONIC KIDNEY DISEASE, UNSPECIFIED Status: Acute (3) Dementia Code(s): F03.90 - UNSPECIFIED DEMENTIA WITHOUT BEHAVIORAL DISTURBANCE Status: Acute (4) HTN (hypertension) Code(s): I10 - ESSENTIAL (PRIMARY) HYPERTENSION Status: Acute (5) Prostate CA Code(s): C61 - MALIGNANT NEOPLASM OF PROSTATE Status: Acute (6) TIA (transient ischemic attack) Code(s): G45.9 - TRANSIENT CEREBRAL ISCHEMIC ATTACK, UNSPECIFIED Status: Acute (7) Weight loss Status: Acute (8) Gross hematuria Status: Acute (9) Irradiation cystitis with hematuria Code(s): N30.41 - IRRADIATION CYSTITIS WITH HEMATURIA Status: Acute (10) Status post cystoscopy Status: Acute (11) Suprapubic catheter Code(s): Z93.59 - OTHER CYSTOSTOMY STATUS Status: Acute - Plan Plan: This is an 82YOM here for right facial droop that has since resolved and new onset afib that resolved after initiating PO amiodarone therapy. Atrial fibrillation - new onset, asymptomatic, resolved around 0140 yesterday, HR has been in 60s- 70s since. - Echo on 12/18 significant for 45-50% EF & trace MR and TR. - Will continue to monitor VS closely. - Cardiology on board, appreciate recs. Will continue Amiodarone PO 400mg BID for 2wks, 200mg BID for 2wks, then change to 200mg qd. - Patient is scheduled for a stress test this AM. - Per cards request with speak with neurology regarding recs for anti- coagulation upon discharge due to h/o of aneurysm rupture. Will continue heparin ppx for now. HTN - Will continue home medications. CKD stage IV - Cr. 2.84 on admission which was increased from baseline. Last Cr check down to 2.59 on 12/19. - Will avoid nephrotoxic meds & continue to monitor w/ BMPs. - Nephrology on board, appreciate recs. Prostate CA - h/o of radiation and chemo - palliative care/cm consulted for placement - Will follow-up with placement decision as daughter and patient have different plans upon discharge. Weight loss - Palliative care consulted, appreciate recs. Dementia - Will attempt to speak with daughter or have CM contact daughter regarding code status and placement. R sided facial droop, resolved - Possible TIA vs residual monique's palsy - NIH scale of 1 now w/ no residual weakness - CT head negative. - Carotid US negative for stenosis. Code: full (follow up with daughter) ppx: hep Dispo: Stress test today and possible d/c later today. Will need to confirm placement plans today. <Tiffany Yang - Last Filed: 12/21/17 08:35> Attending Addendum - Attending Addendum Date/Time: 12/21/17 2677 I personally evaluated the patient and discussed the management with Dr. Yang. I agree with the History, Examination, Assessment and Plan documented above with any addition or exceptions noted below. Patient doing well this morning. He is now in NSR after amiodarone initiation. Underwent stress testing and awaiting results of that this morning. We will discuss with patient the risk/benefit profiles of NOAC or ASA therapy in the setting of afib, and likely discuss with neurology as well due to his history of cerebral aneurysm. Further mgmt per cardiology recs. <Arsalan Ng - Last Filed: 12/21/17 11:42>
--- NOTE | 2017-12-21 09:43 | CON ---
DATE OF CONSULTATION: 12/18/2017 ROOM NUMBER: 205. PRIMARY CARE PHYSICIAN: [facility]. PRIMARY CREDIT SUPPORT COUNSELOR: Merly Gastelum M.D. PRIMARY INVESTIGATIONS MANAGER: Anamaria Marroquin M.D. REFERRING PHYSICIAN: John Gregorio D.O. REASON FOR CARDIOLOGY CONSULTATION: New onset atrial fibrillation. HISTORY OF PRESENT ILLNESS: Mr. Arguelles is a very pleasant -[place] male with a significant hi story of hypertension, history of aneurysm in 2002, prostate cancer with suprapubic catheter for 5 ye ars and dementia. Yesterday morning, patient's home health nurse noticed the patient's right side of face drooping. The patient was transferred to the emergency department for further evaluation and t reatment. Today, Dr. Moreland has noticed the patient having more shortness of breath and possibly due to the atrial fibrillation with rapid ventricular response. For those reasons, the Cardiology c onsult was ordered. At this moment, the patient is really pleasant, alert and oriented to self; mcclain memo, the patient cannot give us enough history, so the patient's history was given by the patient's f amily member and patient's daughters, medical record and record. The family members state he d id not complain any shortness of breath, dizziness, lightheadedness, chest pain or discomfort in his chest or any other complaints prior to this event. However, they also report that patient usually do es not complain usually at home. The patient's vital sign especially the patient's blood pressure is up and down at home, sometimes systolic blood pressure going 90s and up to 190s at home. The patien t never diagnosed as atrial fibrillation before. He never seen the inside sales professional as an outpatient. T he patient never had a cardiac workout before, and echocardiogram before. He has significant histor y of chronic kidney disease, which is managed by Dr. Moreland as an outpatient. PAST MEDICAL HISTORY: 1. Hypertension. 2. Hyperlipidemia. 3. Chronic kidney disease. 4. Aneurysm in 2002. 5. History of Lee's palsy in 2015. 6. Prostate cancer with radiation x2. PAST SURGICAL HISTORY: Suprapubic catheter for 5 years. FAMILY HISTORY: Significant family history of cancer and CVA in his family. His mother has had a me dical history of hypertension and diabetes and also patient's 7 children, all have hypertension. SOCIAL HISTORY: The patient lives himself; however, the patient had a 24-hour caregiver and also genoveva hutchinson's one of the childrens lives close next door. He moved slow, but he never fall recent. The genoveva hutchinson continues smoking one-third pack of a day. At this moment, the patient is not willing to stop s moking, but no alcohol or illicit drug abuse. The patient has 8 childrens, one of the patient's jesse thornton due to cancer. Out of 7 children, they were well, but have history of hypertension. ALLERGIES: No known drug allergy. HOME MEDICATIONS: BuSpar 10 mg once a day, Norvasc 10 mg once a day, losartan 50 mg once a day, spir onolactone 25 mg once a day, potassium 10 mEq once a day, carvedilol 12.5 mg once a day, multivitamin 1 tablet once a day, iron supplement, ferrous sulfate 325 mg once a day, vitamin D3 of 2000 units da shaun, Megace 40 mg once a day, atorvastatin 20 mg once a day. REVIEW OF SYSTEMS: Twelve-point review of systems was negative, unless otherwise mentioned in the HP I or below. The patient wears upper and lower dentures. He does not use a cane or walker. He has n ot fallen for long time. He wears a suprapubic catheter. Family deny any blood in the stool or urin e. He has a good appetite. PHYSICAL EXAMINATION: VITAL SIGNS: Blood pressure 131/89, temperature 98.5, pulse is 86, respiratory rate of 16, O2 sat 98 % on room air. GENERAL: The patient is alert, oriented to time and self, not in acute distress. HEAD: Normocephalic, atraumatic. EYES: Extraocular muscle movements intact. ENT AND MOUTH: Oral and nasal mucosa moist without lesions. NECK: Normal range of motion. No JVP. Carotid pulses are present without bruit or thrill. RESPIRATORY: Clear to auscultate bilaterally. CARDIOVASCULAR: Irregularly irregular. There are no S3, S4. 2+ pulses in bilateral lower extremiti es. No edema. ABDOMEN: Soft, nontender. No mass to palpate. Bowel sounds are present. MUSCULOSKELETAL: The patient is able to move all extremities without difficulties. SKIN: Warm and dry, no bruises, erythema or lesion noticed. NEUROLOGIC: Nonfocal but he is demented. He cannot recall the place or time. PSYCHIATRIC: Normal mood and affect. LABORATORY DATA: WBC 4.8, hemoglobin 14.0, hematocrit 43.7, platelets 137, INR 1.1. Sodium 134, pot assium 4.6, BUN 43, creatinine 2.86, glucose 122, calcium 9.8, mag 2.2, ALT 17. CK-MB 1.7, troponin is 0.012, 0.016 and total cholesterol 138, triglyceride 53, HDL 33, LDL 94. TSH 1.6229. IMAGING: CT scan brain shows no acute intracranial abnormality. He is going to have the MRI this af ternoon. Carotid Doppler shows no significant stenosis. ASSESSMENT AND PLAN: 1. New onset of atrial fibrillation. At this moment, the patient's heart rate is stable with metopr olol; however, which was discontinued and changed to Carvedilol twice a day. The patient is on hepar in subcutaneous 5000 units twice a day due to history of chronic kidney disease. The patient is stab le at this moment. We would like to continue to monitor on the telemetry. 2. Hypertension. The patient's blood pressure is stable at this moment with the current medication. We would like to continue to monitor. 3. Possible transient ischemic attack or Lee's palsy. The patient is going to have MRI this aftern oon. The patient's echocardiogram was done, the result is pending at this moment. 4. Chronic kidney disease which is managed by Dr. Moreland. 5. Hyperlipidemia. The patient is on statin medication at this moment. 6. History of prostate cancer with suprapubic catheter, stable at this moment. 7. Dementia, stable at this moment, managed by patient's primary care doctor. Thank you very much for allowing the Cardiology Service to participate in the care of this patient. We will follow along with the patient care team and make further recommendations as appropriate.
[2017-12-21] MEDS: Amiodarone 200 MG TAB PO SCH ×2 (10:55→22:14)
[2017-12-21] MEDS: busPIRone HCl 10 MG TAB PO SCH (10:55)
[2017-12-21] MEDS: Spironolactone 25 MG TAB PO SCH (10:56)
[2017-12-21] MEDS: Heparin 5,000 UNITS/ML VIAL SC SCH (10:56)
[2017-12-21] MEDS: Multivitamin W/ Minerals 1 TAB PO SCH (10:56)
[2017-12-21] MEDS: Potassium Chloride 10 MEQ TAB PO SCH (10:56)
--- NOTE | 2017-12-21 12:13 | PDOC.CTH ---
<Christelle Gonzalez - Last Filed: 12/21/17 12:14> Cardiology Progress Note - Subjective The pt seen and examined. No overnight events. No cardiac complaints. the pt cont. having very hard coughs from PNA. - Objective Vital Signs Temp Pulse Resp BP Pulse Ox 12/21/17 10:00 100 12/21/17 07:28 98.9 F 76 20 168/91 H 100 12/21/17 03:20 98.2 F 73 16 156/83 H 98 Weight 142 lb 12/20/17 12/21/17 12/22/17 06:59 06:59 06:59 Intake Total 240 Output Total 300 Balance -60 - Physical Examination General/Neuro: alert & oriented x3 Neck: no JVD present Lungs: CTA Heart: RRR Abdomen: soft Extremities: other: (No edema) - Telemetry Telemetry Rhythm: SR - Labs Result Diagrams: 12/17/17 13:36 12/19/17 08:31 Troponin/CKMB CK-MB (CK-2) 1.7 ng/mL (0-6.6) 12/17/17 13:36 Troponin I 0.016 ng/mL (< 0.028) 12/17/17 16:56 - Assessment/Plan 1. Afib with RVR - He converted back to SR around 0140 on 12/20/17. HR has been 60-70s with SR with Amiodarone PO 400mg BID for 2wks, 200mg BID for 2wks, then change to 200mg qd. On Heparin BID; Will need to discuss with Neurologists the risk involved with OAC and history of intracerebral bleed. He has Hx of Cerebral aneurysm with raptured in 2002 2. Rt sided facial droop/bells palsy? 3. HTN - stable with current meds 4. CKD - managed by merchandise flow team leader 5. Hx of Cerebral aneurysm with raptured in 2002 - 6. Prostate Ca with suprapubic cath - 7. Dementia MAR reviewed * Echo on 12/18/17 showed EF 45-50%, trace MR, trace TR, mild OH, small pericardial effusion, and AFib. * The pt's stress test result is pending Review of Systems - Review of Systems Constitutional: reports: no symptoms reported EENTM: reports: no symptoms reported Respiratory: reports: no symptoms reported Cardiac (ROS): reports: no symptoms reported ABD/GI: reports: no symptoms reported : reports: no symptoms reported Musculoskeletal: reports: no symptoms reported <Qamar Marroquin - Last Filed: 12/21/17 18:07> Cardiology Progress Note - Objective Vital Signs Temp Pulse Resp BP BP Pulse Ox 12/21/17 17:48 125/74 12/21/17 15:33 98.4 F 84 16 125/74 100 12/21/17 11:40 98.1 F 82 20 148/94 H 97 12/21/17 10:00 100 12/21/17 07:28 98.9 F 76 20 168/91 H 100 Weight 142 lb 12/20/17 12/21/17 12/22/17 06:59 06:59 06:59 Intake Total 240 Output Total 300 Balance -60 - Labs Result Diagrams: 12/17/17 13:36 12/19/17 08:31 Troponin/CKMB CK-MB (CK-2) 1.7 ng/mL (0-6.6) 12/17/17 13:36 Troponin I 0.016 ng/mL (< 0.028) 12/17/17 16:56 - Assessment/Plan pt. seen and eval. by me. I agree with the A/P by the COMBINATION WINDOW INSTALLER. Stress test is negative for ischemia. Afib. Risk of falls. continue ASA.
--- NOTE | 2017-12-21 13:06 | NM ---
NUCLEAR MEDICINE CARDIAC STRESS WITH EF AND WALL MOTION: History: New onset atrial fibrillation. Technique: Patient was administered 10.4 mCi Technetium 99M Sestamibi for rest imaging and 32.1 mCi T echnetium 99M Sestamibi for stress imaging. Cardiac gating was performed. FINDINGS: Homogeneous distribution of the radiotracer in the left ventricle. There is no reversibility, no fixe d defect. TID 0.94. End diastolic volume is 89 ml. End systolic volume is 47 ml. CARDIAC GATING: There is diffuse decreased wall motion and thickening. Global hypokinesis. 47% ejection fraction. IMPRESSION: 1. No reversibility. No fixed defect. 2. 47% ejection fraction. Global hypokinesis. POS: VASU
[2017-12-21] MEDS ORDERED: ADENOSINE 60 MG/20 ML VIAL ONE (13:08)
[2017-12-21] MEDS: Carvedilol 6.25 MG TAB PO SCH (17:48)
[2017-12-21] MEDS: Atorvastatin Calcium 20 MG TAB PO SCH (22:14)
--- NOTE | 2017-12-22 05:26 | PDOC.FM ---
- Subjective Subjective: NAEO. Patient states he feels well this AM. Denies any chest pain, SOB, abdominal pain, N/V/D, or constipation. Is oriented to person and place. Open to going to rehab before going home w/ home PT. - Objective MAR Reviewed: Yes Vital Signs & Weight: Vital Signs (12 hours) Temp Pulse Resp BP BP Pulse Ox 12/21/17 23:25 99.4 F 73 16 134/87 98 12/21/17 20:00 97 12/21/17 19:10 98.8 F 80 18 137/74 97 12/21/17 17:48 125/74 Weight Weight 64.41 kg I&O: 12/20/17 12/21/17 12/22/17 06:59 06:59 06:59 Intake Total 240 360 Output Total 300 350 Balance -60 10 Result Diagrams: 12/17/17 13:36 12/22/17 08:22 <Tiffany Yang - Last Filed: 12/22/17 09:20> - Objective Vital Signs & Weight: Vital Signs (12 hours) Temp Pulse Resp BP BP Pulse Ox 12/22/17 11:41 147/84 H 12/22/17 07:24 98.5 F 75 20 164/88 H 99 12/22/17 04:00 99 F 74 16 153/80 H 97 Weight Weight 65.771 kg I&O: 12/21/17 12/22/17 12/23/17 06:59 06:59 06:59 Intake Total 240 360 Output Total 300 850 Balance -60 -490 Result Diagrams: 12/17/17 13:36 12/22/17 08:22 <Arsalan Ng - Last Filed: 12/22/17 12:27> Phys Exam - Physical Examination Constitutional: NAD HEENT: moist MMs Neck: supple, full ROM Respiratory: no rales, no rhonchi, wheezing present (minimal end-expiratory wheezing heard throughout), clear to auscultation bilateral Cardiovascular: RRR, no significant murmur Gastrointestinal: soft, non-tender, no distention, positive bowel sounds Neurological: non-focal, normal sensation, moves all 4 limbs Psychiatric: normal affect Skin: no rash, normal turgor, cap refill <2 seconds <Tiffany Yang - Last Filed: 12/22/17 09:20> Dx/Plan (1) Atrial fibrillation Code(s): I48.91 - UNSPECIFIED ATRIAL FIBRILLATION Status: Acute (2) Chronic kidney disease Code(s): N18.9 - CHRONIC KIDNEY DISEASE, UNSPECIFIED Status: Acute (3) Dementia Code(s): F03.90 - UNSPECIFIED DEMENTIA WITHOUT BEHAVIORAL DISTURBANCE Status: Acute (4) HTN (hypertension) Code(s): I10 - ESSENTIAL (PRIMARY) HYPERTENSION Status: Acute (5) Prostate CA Code(s): C61 - MALIGNANT NEOPLASM OF PROSTATE Status: Acute (6) TIA (transient ischemic attack) Code(s): G45.9 - TRANSIENT CEREBRAL ISCHEMIC ATTACK, UNSPECIFIED Status: Acute (7) Weight loss Status: Acute (8) Gross hematuria Status: Acute (9) Irradiation cystitis with hematuria Code(s): N30.41 - IRRADIATION CYSTITIS WITH HEMATURIA Status: Acute (10) Status post cystoscopy Status: Acute (11) Suprapubic catheter Code(s): Z93.59 - OTHER CYSTOSTOMY STATUS Status: Acute - Plan Plan: This is an 82YOM here for right facial droop that has since resolved and new onset afib that resolved after initiating PO amiodarone therapy. Atrial fibrillation - new onset, asymptomatic, resolved around 0140 on 12/19, HR has been in 60s- 70s since. - Echo on 12/18 significant for 45-50% EF & trace MR and TR. - Nuclear stress test done yesterday negative for ischemia, just showed some global hypokinesis. - Will continue to monitor VS closely. - Cardiology on board, appreciate recs. Will continue Amiodarone PO 400mg BID for 2wks, 200mg BID for 2wks, then change to 200mg qd. - Spoke w/ Dr. Menendez yesterday regarding best choice for anticoagulation who stated that ASA would be fine but if we were to decide to initiate anticoagulation w/ a NOAC or warfarin, would need a CTA of head first to evaluate for any aneurysm. Had long discussion w/ daughters about risks vs. benefits of getting CTA and starting anticoagulation vs. antiplatelet therapy for stroke prevention and daughters opted to use ASA and not have a CTA. Patient was agreeable to this decision as well. - Calculated patient's HASBLED and [id number] & risk of bleeding/year was ~ 12.5% vs. risk of stroke which was 6.7%. HTN - Will continue home medications. CKD stage IV - Cr. 2.84 on admission which was increased from baseline. Last Cr check down to 2.59 on 12/19. - Will avoid nephrotoxic meds & continue to monitor w/ BMPs. - Nephrology on board, appreciate recs. Prostate CA - Aware. - h/o of radiation and chemo. Weight loss - Palliative care consulted, appreciate recs. Dementia - Will attempt to speak with daughter or have CM contact daughter regarding code status. - Daughters have decided to have one person at home with him at all times once discharged but would like him to go to rehab for a short stay before going home. Patient has been accepted by inpatient rehab, just waiting for a bed to open. Medically stable for discharge. R sided facial droop, resolved - Possible TIA vs residual monique's palsy - NIH scale of 1 now w/ no residual weakness - CT head negative. - Carotid US negative for stenosis. Code: full (follow up with daughter) ppx: ASA Dispo: Possible discharge to inpatient rehab today. Waiting for an open bed as patient has already been accepted. <Tiffany Yang - Last Filed: 12/22/17 09:20> Attending Addendum - Attending Addendum Date/Time: 12/22/17 1226 I personally evaluated the patient and discussed the management with Dr. Yang. I agree with the History, Examination, Assessment and Plan documented above with any addition or exceptions noted below. Patient doing well from Afib standpoint today. Patient and family declined more intensive anticoagulation other than ASA therapy. He has been accepted for rehab placement and will be discharged there today. <Arsalan Ng - Last Filed: 12/22/17 12:27>
[2017-12-22 09:08] LABS: Anion Gap 11 mmol/L (10-20); BUN (Urea Nitrogen) 45 mg/dL (8.4-25.7); Calc. Creatinine Clearance 20 mL/min (70-130); Calcium 8.9 mg/dL (7.8-10.44); Carbon Dioxide 24 mmol/L (23-31); Chloride 112 mmol/L (98-107); Estimated GFR-MDRD 28; Glucose 116 mg/dL (83-110); Potassium 4.3 mmol/L (3.5-5.1); Sodium 143 mmol/L (136-145)
[2017-12-22] MEDS: Spironolactone 25 MG TAB PO SCH (11:39)
[2017-12-22] MEDS: busPIRone HCl 10 MG TAB PO SCH (11:41)
[2017-12-22] MEDS: Amiodarone 200 MG TAB PO SCH (11:41)
[2017-12-22] MEDS: Multivitamin W/ Minerals 1 TAB PO SCH (11:41)
[2017-12-22] MEDS: Potassium Chloride 10 MEQ TAB PO SCH (11:41)
[2017-12-22] MEDS: Carvedilol 6.25 MG TAB PO SCH (11:41)
--- NOTE | 2017-12-22 13:18 | PDOC.CTH ---
Cardiology Progress Note - Subjective The pt seen and examined. No overnight events. No cardiac complaints. - Objective Vital Signs Temp Pulse Resp BP BP Pulse Ox 12/22/17 11:58 97.8 F 80 16 147/84 H 98 12/22/17 11:41 147/84 H 12/22/17 07:24 98.5 F 75 20 164/88 H 99 12/22/17 04:00 99 F 74 16 153/80 H 97 Weight 145 lb 12/21/17 12/22/17 12/23/17 06:59 06:59 06:59 Intake Total 240 360 Output Total 300 850 Balance -60 -490 - Physical Examination General/Neuro: other: (intermittent confusion) Lungs: CTA (diminished at bases) Heart: RRR Abdomen: soft Extremities: other: - Telemetry Telemetry Rhythm: SR - Labs Result Diagrams: 12/17/17 13:36 12/22/17 08:22 Troponin/CKMB CK-MB (CK-2) 1.7 ng/mL (0-6.6) 12/17/17 13:36 Troponin I 0.016 ng/mL (< 0.028) 12/17/17 16:56 - Assessment/Plan 1. Afib with RVR - He converted back to SR around 0140 on 12/20/17. HR has been 60-70s with SR with Amiodarone PO 400mg BID for 2wks, 200mg BID for 2wks, then change to 200mg qd. On Heparin BID; Will need to discuss with Neurologists the risk involved with OAC and history of intracerebral bleed. He has Hx of Cerebral aneurysm with raptured in 2002. The pt's PCP and daughters had discussion about OAC and decided to cont. ASA. 2. Rt sided facial droop/bells palsy? 3. HTN - stable with current meds 4. CKD - managed by administrative assistant receptionist 5. Hx of Cerebral aneurysm with raptured in 2002 - 6. Prostate Ca with suprapubic cath - 7. Dementia MAR reviewed * Echo on 12/18/17 showed EF 45-50%, trace MR, trace TR, mild IA, small pericardial effusion, and AFib. * The pt's stress test result is pending * Stress test on 12/21/17 showed negative for ischemia with EF 47%. * From Cardiac standpoint, the pt is stable to d/c home. The pt f/u with Dr Marroquin ' office within 2-4 wks. Review of Systems - Review of Systems Constitutional: reports: no symptoms reported EENTM: reports: no symptoms reported Respiratory: reports: no symptoms reported Cardiac (ROS): reports: no symptoms reported ABD/GI: reports: no symptoms reported : reports: no symptoms reported
[2017-12-22 15:08] VITALS: BP 168/88; TEMP 98.7
--- NOTE | 2017-12-22 21:07 | PRG ---
DATE OF SERVICE: 12/22/2017 PHYSICAL EXAMINATION: Noted with the following, VITAL SIGNS: Afebrile with temperature of 98.7, pulse 73, respiratory rate of 20, O2 sat 98%, blood pressure . HEENT: Unremarkable. Moist oral mucosa. NECK: Supple. No conjunctival injection or icterus. CARDIOVASCULAR: First and second heart sounds, irregularly irregular. DIGESTIVE SYSTEM: Revealed a benign abdomen with positive bowel sounds. EXTREMITIES: No peripheral edema. SKIN: No new gross rash. LYMPHATICS: No peripheral lymphadenopathy. IMPRESSION: 1. Acute on chronic kidney disease, this seems to be stable. 2. Atrial fibrillation with rapid ventricular response. 3. Mild congestive failure. PLAN: 1. We will continue renal supportive measures. 2. From the renal standpoint, the patient is good for discharge.
--- NOTE | 2017-12-23 05:17 | DIS-2 ---
DATE OF ADMISSION: 12/19/2017 DATE OF DISCHARGE: 12/22/2017 ADMITTING ATTENDING: Refugio Atkins MD DISCHARGE ATTENDING: Arsalan Ng MD CONSULTATIONS: 1. Cardiology, Dr. Anamaria Marroquin. 2. Nephrology, Dr. Merly Gastelum. PROCEDURES: 1. Brain CT showed no acute intracranial abnormalities. 2. Carotid Doppler study showed no significant plaque and no evidence of significant extracranial ICA stenosis. 3. Brain MRI which showed age appropriate atrophy and chronic small vessel ischemic changes on white matter and no acute infarct. 4. Echocardiogram, which was significant for small pericardial effusion and ejection fraction estimated at 45-50% with mild pulmonic regurg and trace mitral and tricuspid valve regurgitation. 5. Nuclear stress test, which showed no evidence of ischemia, but global hypokinesis. PRIMARY DIAGNOSES: 1. 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 2. New onset atrial fibrillation. SECONDARY DIAGNOSES: 1. Hypertension. 2. History of prostate cancer. 3. Chronic kidney disease. 4. Weight loss secondary to decreased p.o. intake. 5. Dementia. 6. History of transient ischemic attack. DISCHARGE MEDICATIONS: 1. BuSpar 10 mg p.o. daily. 2. Norvasc 10 mg p.o. daily. 3. Losartan potassium 50 mg p.o. daily. 4. Spironolactone 25 mg p.o. daily. 5. Potassium chloride 10 mEq p.o. daily. 6. Coreg 12.5 mg p.o. daily. 7. Multivitamin 1 each daily. 8. Ferrous sulfate 325 mg p.o. daily. 9. Cholecalciferol 2000 units p.o. daily. 10. Megace 40 mg p.o. daily. 11. Atorvastatin 20 mg p.o. at bedtime. 12. Acetaminophen 650 mg p.o. q.4 hours p.r.n. for pain. 13. Amiodarone 400 mg p.o. b.i.d. for the next 11 days and then decrease to 200 mg p.o. b.i.d. for 2 weeks, then continue on 200 mg p.o. daily. 14. Aspirin 81 mg p.o. daily. HISTORY OF PRESENT ILLNESS AND HOSPITAL COURSE: The patient is an 82-year-old -[place] gentleman with a past medical history significant for history of a TIA, a ruptured brain aneurysm, hypertension, and chronic kidney disease stage 4, who presented to the emergency department with his daughter with a chief complaint of right-sided facial droop that was initially noted by home health. Per his medical records, EMS, and family, the patient had right-sided facial droop that began suddenly on the day of presentation but resolved quickly without any residual weakness, syncope, chest pain, or other associated symptoms. On presentation to the emergency department, patient's vitals were noted to be within normal limits with the exception of a significantly elevated blood pressure of 173/104. Routine lab work was obtained, which was significant for an elevated BUN and creatinine of 43 and 2.86 consistent with the patient's stage [address] A brain CT and carotid Doppler study were also obtained, which were negative for any signs of an acute intracranial abnormality or any significant ICA stenosis. Also, of vaishali, while in the emergency department the patient developed new onset atrial fibrillation. He was therefore admitted to telemetry for closer observation overnight. The following day, the patient had an MRI to rule out any acute cerebrovascular accident which was negative for any acute stroke. It was therefore presumed that his right-sided facial droop was likely secondary to residual Lee's palsy as he had no evidence of any intracranial stenosis or abnormalities. Also of note, nephrology, Dr. Moreland, was consulted to come and evaluate the patient as his renal function was slightly lower than baseline at admission. Dr. Gastelum recommended consulting cardiology to address his atrial fibrillation to improve circulation to his kidneys which would likely improve his renal function. And, as predicted, the patient's creatinine did downtrend to baseline once his atrial fibrillation was addressed. Regarding the patient's new onset atrial fibrillation, Cardiology, Dr. Colin Marroquin , was consulted the second day of hospitalization as well. Prior to her visiting the patient, he had an echocardiogram which showed an estimated EF of 45-50% with some trace and mild valve regurgitation. His TSH and magnesium were also within normal limits. After her evaluation, Dr. Marroquin recommended initiating antiarrhythmic therapy with 400 mg of amiodarone p.o. b.i.d. and, shortly after initiating therapy, the patient converted to normal sinus rhythm early on the morning, 12/20/2017. He remained in normal sinus rhythm for the remainder of his hospital stay. The patient was monitored closely for the next 2 days pending approval for discharge to inpatient rehabilitation per the wishes of his daughters, his MPOAs. Of note, after a thorough discussion with the patient and two of his daughters, it was decided to proceed with aspirin rather than novel oral anticoagulation agents or warfarin for for stroke prevention for his atrial fibrillation. The risks and benefits of anticoagulation versus antiplatelet therapy were explained and the daughters decided that, given the risks and benefits of each, aspirin would be a safer choice. He was therefore discharged to inpatient rehabilitation in stable condition on QD ASA for stroke prevention. DISPOSITION: Stable. DISCHARGE INSTRUCTIONS: 1. Location: Inpatient rehabilitation. 2. Activity: As tolerated. 3. Diet: Heart healthy diet, low sodium, renal, low protein diet. 4. The patient was instructed to follow up with his primary care provider, Dr. Izzy George within 1 week of discharge. He was also instructed to follow up with Cardiology, Dr. Colin Marroquin within 1 month of discharge. JAG
== END 2017-12-22 15:25 | DRG 74 ==
LOC: ERS 13:22 → 2SE 16:18 → INTOOBSV 16:18 → 2SW 12-18 18:15 → OBSVTOIN 12-19 10:15
PROVIDERS: ADMIT Family Medicine; ATTEND Family Medicine
DX: G51.0 Bell's palsy (principal); N30.41 Irradiation cystitis with hematuria; N18.4 Chronic kidney disease, stage 4 (severe); I31.3 Pericardial effusion (noninflammatory); N17.9 Acute kidney failure, unspecified; I48.91 Unspecified atrial fibrillation; E78.5 Hyperlipidemia, unspecified; F17.210 Nicotine dependence, cigarettes, uncomplicated; F03.90 Unspecified dementia, unspecified severity, without behavioral disturbance, psychotic disturbance, mood disturbance, and anxiety; R63.4 Abnormal weight loss; Z68.20 Body mass index [BMI] 20.0-20.9, adult; I12.9 Hypertensive chronic kidney disease with stage 1 through stage 4 chronic kidney disease, or unspecified chronic kidney disease; I08.1 Rheumatic disorders of both mitral and tricuspid valves; R31.0 Gross hematuria; C61 Malignant neoplasm of prostate; E87.6 Hypokalemia; N13.9 Obstructive and reflux uropathy, unspecified
CPT/HCPCS: 36415; 36416; 70450; 70551; 78452; 80048; 80053; 80061; 80069; 82550; 82553; 83735; 84443; 84484; 85025; 85610; 85730; 93005; 93017; 93306; 93880; 94640; 96372; A9500; G8978-GP-CL; G8979-GP-CJ; G8987-GO-CJ; G8988-GO-CI; J0153; J1644; J1650; J7620; S0179

== ENCOUNTER 2018-02-17 09:25 | Outpatient (CLI) | payer MEDICARE, BC ==
--- NOTE | 2018-02-17 10:46 | RAD ---
PA AND LATERAL CHEST: History: Dyspnea. FINDINGS: Comparison is made with exam of 12-28-17. The heart size is normal. The aorta is tortuous. The lungs are well expanded without focal areas of c onsolidation, pneumothorax or pleural effusions. Changes of COPD are again seen. There are degenerati ve changes of the spine. IMPRESSION: No radiographic evidence of acute cardiopulmonary process. POS: OFF
== END 2018-02-17 09:26 | disposition home or self-care (01) ==
LOC: RAD 09:25
PROVIDERS: ATTEND Internal Medicine Critical Care Medicine
DX: R06.00 Dyspnea, unspecified (principal)
CPT/HCPCS: 71046

== ENCOUNTER 2018-10-02 22:13 | Emergency (ER) | payer MEDICARE, BC ==
[2018-10-03] MEDS ORDERED: HYDROcodone/Acetaminophen 5/325 mg Tablet ONE (02:42)
[2018-10-03 02:59] LABS: Bilirubin Negative (Negative); Blood, Urine Large (Negative); Glucose, Urine (Dipstick) Negative (Negative); Leukocyte Large (Negative); Nitrite Negative (Negative); Protein, Urine (Dipstick) 100 mg/dL (Neg-Trace); Urobilinogen 0.2 mg/dL (Less than 2)
[2018-10-03 03:00] LABS: Clarity Turbid (Clear)
[2018-10-03 03:17] LABS: Bacteria/HPF 3+ HPF (None Seen); RBC/HPF Greater than 50 HPF (0-3); Squamous Epithelial None Seen HPF (0-3); WBC/HPF Greater than 50 HPF (0-3)
[2018-10-03 03:19] LABS: Transitional Epithelial 0-3 HPF (None Seen)
[2018-10-03 03:22] LABS: Renal Epithelial 0-3 HPF (None Seen)
[2018-10-03 03:27] LABS: Yeast-Budding None Seen HPF (None Seen)
== END 2018-10-03 02:15 | disposition home or self-care (01) ==
LOC: ERS 22:13
DX: T83.098A Other mechanical complication of other urinary catheter, initial encounter (principal); I12.0 Hypertensive chronic kidney disease with stage 5 chronic kidney disease or end stage renal disease; N18.6 End stage renal disease; Z99.2 Dependence on renal dialysis; Z87.891 Personal history of nicotine dependence; Z85.46 Personal history of malignant neoplasm of prostate; Z79.899 Other long term (current) drug therapy
CPT/HCPCS: 51702; 81003; 81015; 87077; 87086; 87186

== ENCOUNTER 2018-11-24 13:46 | Observation (INO) | payer MEDICARE, BC ==
[2018-11-24 15:09] LABS: #Eosinphils 0.1 thou/uL (0.0-0.7); #Monocytes 0.6 thou/uL (0.11-0.59); #Neutrophils 4.7 thou/uL (1.40-6.50); %Basophils 0.3 % (0.0-1.0); %Lymphocytes 15.8 % (21.0-51.0); %Monocytes 9.3 % (0.0-10.0); %Neutrophils 72.7 % (42.0-75.0); Hemoglobin 11.9 g/dL (14.0-18.0); Mean Corpuscular HGB CONC 33.8 g/dL (32.0-36.0); Mean Corpuscular Volume 88.6 fL (78.0-98.0); Mean Platelet Volume 8.5 fL (7.4-10.4); Platelet Count 145 thou/uL (130-400); RBC Distribution Width 13.4 % (11.5-14.5); Red Blood Cell (RBC) Count 3.97 mill/uL (4.70-6.10); White Blood Cell (WBC) Count 6.5 thou/uL (4.8-10.8)
[2018-11-24] MEDS ORDERED: hydrALAZINE 20 MG/ML VIAL ONE (15:25)
[2018-11-24 15:30] LABS: ALT (SGPT) 13 U/L (8-55); AST (SGOT) 14 U/L (5-34); Albumin 3.7 g/dL (3.4-4.8); Alkaline Phosphatase 60 U/L (40-110); Anion Gap 13 mmol/L (10-20); BUN (Urea Nitrogen) 26 mg/dL (8.4-25.7); Bilirubin, Total 0.4 mg/dL (0.2-1.2); Calc. Creatinine Clearance 0 mL/min (70-130); Calcium 8.9 mg/dL (7.8-10.44); Carbon Dioxide 24 mmol/L (23-31); Chloride 106 mmol/L (98-107); Estimated GFR-MDRD 27; Globulin 2.9 g/dL (2.4-3.5); Glucose 125 mg/dL (83-110); Potassium 3.6 mmol/L (3.5-5.1); Protein, Total 6.6 g/dL (5.8-8.1); Sodium 139 mmol/L (136-145)
[2018-11-24 15:52] LABS: CKMB 1.7 ng/mL (0-6.6)
[2018-11-24] MEDS ORDERED: Labetalol HCl 100 MG/20 ML VIAL ONE (17:26)
[2018-11-24 19:12] LABS: Troponin I 0.038 ng/mL (< 0.028)
[2018-11-24] MEDS ORDERED: Famotidine 20 MG TAB PO PRN (19:29)
[2018-11-24] MEDS ORDERED: Acetaminophen 325 MG TAB PO PRN (19:29)
[2018-11-24] MEDS ORDERED: Ondansetron ODT 4 MG TAB PO PRN (19:29)
[2018-11-24] MEDS ORDERED: Ondansetron PF 4 MG/2 ML Vial IVP PRN (19:35)
[2018-11-24] MEDS ORDERED: Ondansetron ODT 4 MG TAB SL PRN (19:35)
[2018-11-24 19:59] VITALS: BMI 25.8
[2018-11-24] MEDS ORDERED: Lactated Ringer's 1,000 ML IV SCH (20:00)
--- NOTE | 2018-11-24 21:55 | PDOC.FPRHP ---
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 In the ED, Dr. Gordon was able to replace the patient's suprapubic catheter. On evaluation, the patient was noted to have a BP of 190/100 and a trop of 0.35. The patient denied cp, palpitations, SOB, headaches, visual changes. He reports that he had 3 episodes of non-bloody diarrhea this morning, but has otherwise felt well. Denies vomiting. Per his daughter, the patient is visited by a nurse every day that takes his BP and it usually runs in the 120s-140s systolic. PCP: [facility] ED Course: Dr. Gordon evaluated the patient in the ED and fixed his suprapubic cathether. Patient received hydralazine and labetalol before his blood pressure came down - Allergies/Adverse Reactions Allergies Allergy/AdvReac Type Severity Reaction Status Date / Time No Known Allergies Allergy Verified 12/17/17 17:15 - Home Medications Medication Instructions Recorded Confirmed Type Amlodipine [Norvasc] 10 mg PO DAILY 02/16/14 11/24/18 History Losartan Potassium [Cozaar] 50 mg PO DAILY 02/16/14 11/24/18 History busPIRone HCl [Buspar] 10 mg PO DAILY 02/16/14 11/24/18 History Atorvastatin Calcium 20 mg PO HS 12/17/17 11/24/18 History Carvedilol 12.5 mg PO DAILY 12/17/17 11/24/18 History Cholecalciferol (Vitamin D3) 2,000 unit PO DAILY 12/17/17 11/24/18 History [Vitamin D3] Ferrous Sulfate [Iron] 325 mg PO DAILY 12/17/17 11/24/18 History Megestrol Acetate [Megace] 40 mg PO DAILY 12/17/17 11/24/18 History Multivit-Min/FA/Lycopen/Lutein 1 each PO DAILY 12/17/17 11/24/18 History [Centrum Silver Men Tablet] Potassium Chloride 10 meq PO DAILY 12/17/17 11/24/18 History Spironolactone [Aldactone] 25 mg PO DAILY 12/17/17 11/24/18 History Acetaminophen [Tylenol Regular 650 mg PO Q4H PRN tab 12/22/17 11/24/18 Rx Strength] Aspirin Chewable [Aspirin Chewable 81 mg PO DAILY tab 12/22/17 11/24/18 Rx Tablet] Amiodarone [Cordarone] 200 mg PO BID 11/24/18 11/24/18 History Arformoterol [Brovana] 15 mcg NEB BID 11/24/18 11/24/18 History Budesonide [Pulmicort] 0.5 mg IH BID 11/24/18 11/24/18 History - History PMHx: afib, hemorrhagic cva (2002), suprapubic cath, prostate cancer s/p 2 rounds of treatment, L monique's palsy, 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 PSHx: suprapubic catheter FHx: non-contributory Social: no etoh, drugs, stopped smoking 3 mo ago - Vital signs BP: [159/93] HR: [79] RR: [22] Tmax: [98.3] Pox: [99]% on [RA] Wt: [77.11kg] - Physical Exam Constitutional: NAD, awake, alert and oriented, well developed HEENT: normocephalic and atraumatic, EOMI -HEENT: L facial drooping, chronic from monique's palsy Neck: supple, trachea midline, no LAD, no thyromegaly Chest: no-tender to palpation, no lesions Heart: RRR, normal S1/S2 Lungs: CTAB, no respiratory distress Abdomen: non-tender -Abdomen: mildly distended, firm Musculoskeletal: normal structure, normal tone Neurological: no focal deficit, CN II-XII intact Skin: no rash/lesions, good turgor, capillary refill <2 seconds Heme/Lymphatic: no unusual bruising or bleeding, no purpura Psychiatric: normal mood and affect, good judgment and insight FMR H&P: Results - Labs Result Diagrams: 11/25/18 04:58 11/25/18 04:58 Lab results: WBC 6.5 thou/uL (4.8-10.8) 11/24/18 15:02 Hgb 11.9 g/dL (14.0-18.0) L 11/24/18 15:02 Hct 35.1 % (42.0-52.0) L 11/24/18 15:02 MCV 88.6 fL (78.0-98.0) 11/24/18 15:02 Plt Count 145 thou/uL (130-400) 11/24/18 15:02 Neutrophils % 72.7 % (42.0-75.0) 11/24/18 15:02 Sodium 139 mmol/L (136-145) 11/24/18 15:02 Potassium 3.6 mmol/L (3.5-5.1) 11/24/18 15:02 Chloride 106 mmol/L (98-107) 11/24/18 15:02 Carbon Dioxide 24 mmol/L (23-31) 11/24/18 15:02 BUN 26 mg/dL (8.4-25.7) H 11/24/18 15:02 Creatinine 2.78 mg/dL (0.7-1.3) H 11/24/18 15:02 Glucose 125 mg/dL (83-110) H 11/24/18 15:02 Calcium 8.9 mg/dL (7.8-10.44) 11/24/18 15:02 Total Bilirubin 0.4 mg/dL (0.2-1.2) 11/24/18 15:02 AST 14 U/L (5-34) 11/24/18 15:02 ALT 13 U/L (8-55) 11/24/18 15:02 Alkaline Phosphatase 60 U/L (40-110) 11/24/18 15:02 CK-MB (CK-2) 1.7 ng/mL (0-6.6) 11/24/18 15:02 Serum Total Protein 6.6 g/dL (5.8-8.1) 11/24/18 15:02 Albumin 3.7 g/dL (3.4-4.8) 11/24/18 15:02 FMR H&P: A/P - Problem List (1) Hypertensive urgency Current Visit: Yes Status: Acute Code(s): I16.0 - HYPERTENSIVE URGENCY (2) Viral gastroenteritis Current Visit: Yes Status: Acute Code(s): A08.4 - VIRAL INTESTINAL INFECTION , UNSPECIFIED (3) Atrial fibrillation Current Visit: No Status: Acute Code(s): I48.91 - UNSPECIFIED ATRIAL FIBRILLATION (4) Chronic kidney disease Current Visit: No Status: Acute Code(s): N18.9 - CHRONIC KIDNEY DISEASE, UNSPECIFIED Qualifiers: Chronic kidney disease stage: stage 3 (moderate) Qualified Code(s): N18.3 - Chronic kidney disease, stage 3 (moderate) (5) Prostate CA Current Visit: No Status: Chronic Code(s): C61 - MALIGNANT NEOPLASM OF PROSTATE (6) Suprapubic catheter Current Visit: No Status: Chronic Code(s): Z93.59 - OTHER CYSTOSTOMY STATUS - Plan Patient is an 82M with PMHx of HTN, afib, hemorrhagic CVA (2002), suprapubic cath, prostate cancer s/p 2 rounds of tx, L [place]'s palsy, renal insufficiency not on hemodialysis. #Hypertensive Urgency #HTN -reported BP of 190/100, not initially responsive to hydralazine but responsive to labetalol -EKG showed NSR -trop 0.035>0.038>0.046, continue to trend -restart patient's home meds -continue to monitor overnight on tele -echo in 12/17 showed afib with EF 45-50% -consider stress test -FLP #Viral Gastroenteritis -patient had 3 bouts of diarrhea this am, non bloody -acute, likely viral -will continue to monitor and consider cultures if does not improve #Renal insufficiency, stable -creatinine 2.78, at baseline -followed by Dr. Gordon #prostate cancer, stable #suprapubic cath, replaced in ED -followed by Dr. Gordon #Afib -normal sinus rhythm on exam -monitor overnight on tele DVT ppx: SCD Diet: Code: Full Dispo: tele obs for monitoring of BP and cardiac function, possible cardiac workup FMR H&P: Upper Level - Pertinent history 82 yo M here with complaint of elevated BP at home and suprapubic cath falling out at home. He went to the ER where this was replaced by urology. Due to elevated BP at home, labs were checked which included an indeterminate trop of 0.035. Previous trop 1 year ago was negative. Otherwise, labs were at baseline. BP at home today was as high as 190/100 per nurse check. He denies CP, SOB, n /v, vision changes, FISH. He does note multiple episodes of diarrhea over the past 24 hours. Stool is described as loose. Denies bloody or melanotic stool. 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 Denies n/v or abdominal pain denies increased frequency or dysuria PE General A&O x4, NAD HEENT NCAT CV RRR, no murmur Resp CTA, no respiratory distress Abd non tender, no distension, normal BS Extremities no edema, equal pedal pulses Neuro Left facial droop. Otherwise no focal deficits, normal strength - Plan Date/Time: 11/24/182153 I, Gokul Tapia, , have evaluated this patient and agree with findings/plan as outlined by internet cafe manager resident. Pertinent changes/additions are listed here. 1.HTN urgency with elevated trop -BP controlled at this time. Unclear as to why it was elevated earlier today as he did not miss his meds and is normally controlled. -Trend trop, elevation likely related to BP -EKG is NSR without ST or T wave changes -Admit to tele obs, may consider stress in am 2.Diarrhea -Likely viral in nature. If symptoms continue will get stool studies 3.Hx of afib -Currently NSR -Monitor on tele -Not on anticoagulation dt bleed risk. 4.CKD4 -At baseline See internet cafe manager note for management of other chronic problems PPx SCD Diet HH, NPO at midnight Code Full Addendum - Attending - Attending Attestation Date/Time: 11/25/18 0818 I personally evaluated the patient and discussed the management with Dr. Tapia & Luis M. I agree with the History, Examination, Assessment and Plan documented above with any addition or exceptions noted below. Patient with absolutely no symptoms and unremarkable exam. I would obs overnight and d/c in AM, but will defer to day team.
[2018-11-24 22:23] LABS: Troponin I 0.046 ng/mL (< 0.028)
[2018-11-24] MEDS ORDERED: Amlodipine 10 MG TAB PO SCH (22:45)
[2018-11-24] MEDS ORDERED: Budesonide 0.5 MG/2 ML NEB NEB SCH (22:45)
[2018-11-24] MEDS ORDERED: Carvedilol 25 MG TAB PO SCH (22:45)
[2018-11-24] MEDS ORDERED: Atorvastatin Calcium 20 MG TAB PO SCH (22:45)
[2018-11-24] MEDS ORDERED: Arformoterol 15 MCG/2 ML NEB NEB SCH (22:45)
[2018-11-25 05:19] LABS: #Eosinphils 0.2 thou/uL (0.0-0.7); #Lymphocytes 0.9 thou/uL (1.20-3.40); #Monocytes 0.7 thou/uL (0.11-0.59); #Neutrophils 4.5 thou/uL (1.40-6.50); %Eosinophils 2.9 % (0.0-10.0); %Lymphocytes 14.3 % (21.0-51.0); %Monocytes 10.9 % (0.0-10.0); %Neutrophils 71.8 % (42.0-75.0); Hemoglobin 10.9 g/dL (14.0-18.0); Mean Corpuscular HGB CONC 33.5 g/dL (32.0-36.0); Mean Corpuscular Hemoglobin 29.5 pg (27.0-31.0); Mean Corpuscular Volume 88.2 fL (78.0-98.0); Mean Platelet Volume 8.7 fL (7.4-10.4); Platelet Count 136 thou/uL (130-400); RBC Distribution Width 13.3 % (11.5-14.5); Red Blood Cell (RBC) Count 3.68 mill/uL (4.70-6.10); White Blood Cell (WBC) Count 6.2 thou/uL (4.8-10.8)
--- NOTE | 2018-11-25 05:26 | PDOC.FM ---
- Subjective Subjective: Pt's BP's lowering slowly. 150's/80's. Pt denies any chest pain, SOB, palpitations. Pt denies ever being symptomatic, just had an elevated BP found by home health on 11/24. - Objective Vital Signs & Weight: Vital Signs (12 hours) Temp Pulse Resp BP BP Pulse Ox 11/25/18 03:39 99.5 F 78 18 156/87 H 98 11/24/18 23:45 99.1 F 78 18 159/88 H 97 11/24/18 22:44 84 11/24/18 19:40 99.7 F H 84 18 177/90 H 95 11/24/18 19:29 99.7 F H 84 18 177/90 H 95 Weight Weight 77.111 kg Selected Entries 11/24/18 11/25/18 23:45 03:39 Blood Pressure 156/87 H [Semi-Fowlers] Blood Pressure 159/88 H [Supine] Result Diagrams: 11/25/18 04:58 11/25/18 04:58 Phys Exam - Physical Examination Constitutional: NAD HEENT: PERRLA, moist MMs, sclera anicteric Neck: no nodes, no JVD, supple, full ROM Respiratory: no wheezing, no rales, no rhonchi, clear to auscultation bilateral Cardiovascular: RRR, no rub distant heart sounds. Gastrointestinal: soft, non-tender, no distention, positive bowel sounds Musculoskeletal: no edema, pulses present Neurological: non-focal, normal sensation, moves all 4 limbs L-facial droop, chronic form [place] Palsy. Psychiatric: normal affect Deviation from normal: Oriented to person. Confused at location and time. Skin: no rash, normal turgor, cap refill <2 seconds Dx/Plan (1) Hypertensive urgency Code(s): I16.0 - HYPERTENSIVE URGENCY Status: Acute (2) Viral gastroenteritis Code(s): A08.4 - VIRAL INTESTINAL INFECTION, UNSPECIFIED Status: Acute (3) Atrial fibrillation Code(s): I48.91 - UNSPECIFIED ATRIAL FIBRILLATION Status: Acute (4) Chronic kidney disease Code(s): N18.9 - CHRONIC KIDNEY DISEASE, UNSPECIFIED Status: Acute Qualifiers: Chronic kidney disease stage: stage 3 (moderate) Qualified Code(s): N18.3 - Chronic kidney disease, stage 3 (moderate) (5) Prostate CA Code(s): C61 - MALIGNANT NEOPLASM OF PROSTATE Status: Chronic (6) Suprapubic catheter Code(s): Z93.59 - OTHER CYSTOSTOMY STATUS Status: Chronic (7) Non-ST elevation myocardial infarction (NSTEMI) of indeterminate age Code(s): [id number] - Status: Acute - Plan Plan: Patient is an 82M admitted for evaluation and treatment of Hypertensive urgency. 1. Hypertensive Urgency -reported BP of 190/100, not initially responsive to hydralazine but responsive to labetalol in ED. Lowered to 150's/80's. -EKG: NSR -trop 0.035>0.038>0.046, continue to trend. Most likely from Demand Ischemia 2/ 2 HTN. -restart patient's home BP meds of Norvasc, Coreg, Losartan -continue to monitor on tele -echo in 11/2017 showed afib with EF 45-50% -stress test in 11/2017, no ischemia, EF 47%. -FLP: Tir 38, Total Chol 136, LDL 89, HDL 39. 2. NSTEMI: Type 2 VA, 2/2 Demand Ischemia, most likely from #1 -EKG: NSR -trop 0.035>0.038>0.046, continue to trend. 3. Viral Gastroenteritis -patient had 3 episodes of diarrhea 11/24, non bloody -acute, likely viral 4. CKD, Stage 3B -creatinine 2.41, at baseline, GFR 31 -followed by Dr. Gordon 5. Known Hx of prostate cancer, stable -suprapubic cath, replaced in ED -followed by Dr. Gordon 6. Paroxysmal Afib -normal sinus rhythm on exam -monitor overnight on tele -Only on ASA 81 mg for anticoagulation b/c of hx of hemorrhagic CVA 7. Hx of Hemorrhagic CVA DVT ppx: SCD Diet: Heart Healthy Code: Full Dispo: tele obs for monitoring of BP and cardiac function Addendum - Attending - Attending Attestation Date/Time: 11/25/18 0042 I personally evaluated the patient and discussed the management with Dr. Sewell. I agree with the History, Examination, Assessment and Plan documented above with any addition or exceptions noted below. Patient doing well. Suprapubic catheter replaced. BP improved. Stable for discharge. No concern for ACS. Creatinine at baseline.
[2018-11-25 05:34] LABS: Anion Gap 10 mmol/L (10-20); BUN (Urea Nitrogen) 26 mg/dL (8.4-25.7); Calc. Creatinine Clearance 26 mL/min (70-130); Calcium 8.8 mg/dL (7.8-10.44); Carbon Dioxide 26 mmol/L (23-31); Cardiac Risk 3.5 (Less than 4.5); Chloride 108 mmol/L (98-107); Cholesterol 136 mg/dl (< 200 Desired); Estimated GFR-MDRD 31; Glucose 98 mg/dL (83-110); HDL Cholesterol 39 mg/dL (>60 Neg Risk); LDL Cholesterol, Calculated 89 mg/dL; Potassium 3.4 mmol/L (3.5-5.1); Sodium 141 mmol/L (136-145); Triglycerides 38 mg/dL (Less than 150)
[2018-11-25] MEDS ORDERED: Budesonide 0.5 MG/2 ML NEB NEB SCH (06:30)
[2018-11-25] MEDS ORDERED: Arformoterol 15 MCG/2 ML NEB NEB SCH (06:30)
[2018-11-25 07:06] LABS: CKMB 2.2 ng/mL (0-6.6)
[2018-11-25] MEDS ORDERED: Spironolactone 25 MG TAB PO SCH (08:00)
[2018-11-25] MEDS ORDERED: Potassium Chloride 10 MEQ TAB PO SCH (08:00)
[2018-11-25] MEDS ORDERED: Amiodarone 200 MG TAB PO SCH (09:00)
[2018-11-25] MEDS ORDERED: Multivitamin W/ Minerals 1 TAB PO SCH (09:00)
[2018-11-25] MEDS ORDERED: Carvedilol 25 MG TAB PO SCH ×2 (09:00→21:00)
[2018-11-25] MEDS ORDERED: Megestrol Acetate 40 MG TAB PO SCH (09:00)
[2018-11-25] MEDS ORDERED: busPIRone HCl 10 MG TAB PO SCH (09:00)
[2018-11-25] MEDS ORDERED: Aspirin Chewable 81 MG TAB PO SCH (09:00)
[2018-11-25] MEDS ORDERED: Losartan 25 MG TAB PO SCH (09:00)
[2018-11-25] MEDS ORDERED: Amlodipine 10 MG TAB PO SCH ×2 (09:00→21:00)
[2018-11-25 11:48] VITALS: TEMP 98.6
[2018-11-25 13:29] VITALS: BP 138/77
--- NOTE | 2018-11-25 16:51 | CON ---
DATE OF CONSULTATION: 11/24/2018 CONSULTING PHYSICIAN: Dr. Quintero. CONSULTED: Kiko Gordon MD REASON FOR CONSULTATION: Inability to replace suprapubic catheter. HISTORY OF PRESENT ILLNESS: Mr. Arguelles is an 82-year-old black male, who is well known to me for history of BPH, urinary retention, and prostate cancer. He has a chronic indwelling suprapubic catheter secondary to inability to urinate on his own. This has been managed by his custodial for several years now. The daughter reports that they sometimes have difficulty changing his suprapubic tube with some resistance met when trying to replace the catheter. He also has been complaining of a lot of spasms recently. He is not having any altered mental status, fevers, or significant pain, although he does constantly feel like he needs to urinate, which can sometimes be painful and result in spurting of urine through his penis. The patient is currently not taking any kind of antispasmodics. He was due for a suprapubic catheter change today, where his custodial took out his old catheter and attempted to replace a new catheter in, but was unable to do so. They became concerned that they could not get a catheter in, so they sent him to the emergency room for further evaluation. Currently, the patient states he is not really having any pain. He has had a lot of leakage from the penis and from the suprapubic catheter site. Again, denies any fevers or significant problems otherwise. ALLERGIES: NONE. HOME MEDICATIONS: 1. Lipitor. 2. Losartan. 3. Spironolactone. 4. Multivitamin. 5. Vitamin D. 6. Ferrous sulfate. 7. Amlodipine. 8. Carvedilol. 9. Potassium chloride. 10. BuSpar. 11. Megace. 12. Ipratropium/albuterol. 13. Amiodarone. 14. Aspirin. 15. Brovana. 16. Budesonide. PAST MEDICAL HISTORY: 1. Hypertension. 2. High cholesterol. 3. [place] palsy. 4. BPH. 5. Prostate cancer. 6. Chronic kidney disease. 7. Aneurysm. 8. CVA. 9. Mild dementia. 10. Hypertension. 11. Hyperlipidemia. 12. COPD. 13. Chronic kidney disease. 14. Urinary retention. 15. Hypokalemia. PAST SURGICAL HISTORY: 1. SP tube catheter placement. 2. Radical prostatectomy. 3. Brain surgery for aneurysm. FAMILY HISTORY: Significant for cancers and diabetes. Cancers are nonspecified. SOCIAL HISTORY: The patient is a former smoker, but quit in 2018. He does drink caffeine, but denies alcohol or illicit drug use. REVIEW OF SYSTEMS: A 12-point review of systems is reviewed and negative other than for occasional bladder spasms and mild discomfort in the bladder area. PHYSICAL EXAMINATION: VITAL SIGNS: Reviewed and are stable. The patient is afebrile. GENERAL: No apparent distress. Answering questions appropriately, but minimally communicative. Most of the history is obtained from the daughter. Well nourished, well developed, appears stated age. HEENT: Normocephalic and atraumatic. Pupils symmetric and round. Sclerae are nonicteric. Moist mucous membranes. Trachea midline. CARDIOVASCULAR: Regular rate and rhythm. Normal S1 and S2. Symmetric pulses. CHEST: No increased work of breathing. Symmetric expansion. LUNGS: Clear anteriorly. ABDOMEN: Soft, nontender, and nondistended. Positive bowel sounds. No hepatosplenomegaly. No rebound or guarding tenderness. Bladder is not palpable. There is an SP tube site visible with urine leaking out and unfortunately getting over most of the patient's clothing, which is now damp and smelling of urine. : Penis is nonfocal, uncircumcised. Testicles bilaterally descended. Nonfocal. Nontender. No edema. RECTAL: Deferred. EXTREMITIES: No clubbing, cyanosis, or edema. MUSCULOSKELETAL: No obvious joint deformities or joint erythema noted. The patient does have range of motion, although it is somewhat limited. NEUROLOGIC: Cranial nerves 2 through 12 appear grossly intact. There are no obvious focal or sensory motor deficits identified. PSYCHIATRIC: Alert and oriented x2. Appropriate mood and affect. SKIN: Warm, dry, good turgor. No rashes or lesions. LYMPH NODES: No enlargement of the supraclavicular, axillary, cervical, or inguinal lymph nodes. DESCRIPTION OF PROCEDURE: The patient was prepped and draped sterilely for suprapubic catheter placement. An 18-Vietnamese silicone catheter was advanced with ease into the bladder with no resistance or difficulty. The patient was told to relax completely before placement of the catheter, which did allow for proper passage of the catheter directly into the bladder. A 10 mL of sterile water was placed into the balloon. The catheter was then hand irrigated with approximately 250 mL of normal saline, which removed some mucus, but then came back clear. The patient did have significant spasms during this process. The catheter was then affixed with a StatLock to the patient's side and hooked up to gravity drainage. ASSESSMENT AND PLAN: An 82-year-old black male with history of prostate cancer and urinary retention with SP tube, which is not able to be replaced today. The catheter has been replaced now. He does have significant comorbidities and he is not a poor surgical candidate for any further treatment other than a suprapubic catheter. Would recommend continuation of the SP tube. This cannot be changed by his nursing staff at the custodial, although I would recommend that the patient is completely relaxed when this is done. He also has the option to have them changed in our office if he desires. I talked to the daughter about starting him on trospium, which would potentially help with him drinking more water from the secondary dry mouth effects as well as not affecting his dementia as it would not cross into the brain. She thinks this would be a good idea and would like to start this. We will start with 20 mg p.o. b.i.d. and see how he does. I will have him return to see me in December with their scheduled appointment. We can see how he is doing and make any further adjustments if necessary. We will handle his prostate cancer surveillance on an outpatient basis. Job ID: [id number]
[2018-11-25] MEDS ORDERED: Atorvastatin Calcium 20 MG TAB PO SCH ×2 (21:00)
--- NOTE | 2018-11-26 11:13 | DIS ---
DATE OF ADMISSION: 11/24/2018 DATE OF DISCHARGE: 11/25/2018 ADMITTING ATTENDING: Dr. Kerns DISCHARGE ATTENDING: Dr. Ng RESIDENT: Andra Sewell DO. CONSULTS: None. DIAGNOSES: 1. Hypertensive urgency. 2. Type 2 myocardial infarction secondary to demand ischemia, most likely from hypertensive urgency. 3. Viral gastroenteritis. 4. Chronic kidney disease, stage 3b. 5. Known history of prostate cancer, stable. 6. Paroxysmal atrial fibrillation. 7. Hemorrhagic cerebrovascular accident history. DISCHARGE MEDICATIONS: 1. Amiodarone 200 mg p.o. b.i.d. 2. Amlodipine 10 mg p.o. daily. 3. Brovana 15 mcg per 2 mL nebulizer b.i.d. 4. Aspirin 81 mg p.o. daily. 5. Atorvastatin 20 mg p.o. at bedtime. 6. Pulmicort 0.5 mg inhaled b.i.d. 7. BuSpar 10 mg p.o. daily. 8. Carvedilol 12.5 mg p.o. daily. 9. Vitamin D 2000 units p.o. daily. 10. Pepcid 20 mg p.o. daily p.r.n. 11. Iron 325 mg p.o. daily. 12. Cozaar 50 mg daily. 13. Megace 40 mg p.o. daily. 14. Multivitamin p.o. daily. 15. Potassium chloride 10 mEq daily. 16. Spironolactone 25 mg p.o. daily. HISTORY OF PRESENT ILLNESS/HOSPITAL COURSE: The patient is an 82-year-old male with a past medical history of hypertension, chronic kidney disease. He is a home health patient who had his blood pressure measured at home yesterday reading 190/100. He was then taken to the emergency department to be treated for blood pressure. The patient also has a history of prostate cancer and has a suprapubic catheter. The catheter had been displaced and was replaced in the ER by Dr. Gordon. The patient's blood pressure was slowly lowered to the 150s/80s, which is our goal for his age. Continue current blood pressure medication regimen. The patient's elevated troponins were likely due to demand ischemia from his hypertensive urgency and inability to clear troponins because of his CKD. They were trended multiple times and found to be in a stable range, not increasing. So the patient was cleared for acute coronary syndrome and discharged home. DISPOSITION: Stable upon discharge. DISCHARGE INSTRUCTIONS: 1. Location to home. 2. Diet, heart healthy. 3. Activity, as tolerated. 4. Follow up with primary care in 1 week's time. Job ID: [id number] [id number]
== END 2018-11-25 15:03 | disposition home or self-care (01) ==
LOC: ERS 13:46 → 2NO 18:28
PROVIDERS: ADMIT Emergency Medicine; ATTEND Emergency Medicine
DX: I16.0 Hypertensive urgency (principal); I21.A1 Myocardial infarction type 2; I12.9 Hypertensive chronic kidney disease with stage 1 through stage 4 chronic kidney disease, or unspecified chronic kidney disease; N18.4 Chronic kidney disease, stage 4 (severe); I48.0 Paroxysmal atrial fibrillation; K52.9 Noninfective gastroenteritis and colitis, unspecified; C61 Malignant neoplasm of prostate; Z79.82 Long term (current) use of aspirin; Z79.899 Other long term (current) drug therapy; Z86.73 Personal history of transient ischemic attack (TIA), and cerebral infarction without residual deficits; Z87.891 Personal history of nicotine dependence
CPT/HCPCS: 36415; 51705; 80048; 80053; 80061; 82553; 84484; 85025; 93005; 94640; 94760; 96374; 96375; G0378; J0360; J7626; S0179

== ENCOUNTER 2020-05-09 11:51 | Outpatient (CLI) | payer MEDICARE | END 2020-05-09 11:52 | disposition home or self-care (01) | LOC: BICRAD 11:51 | PROVIDERS: ATTEND Internal Medicine Critical Care Medicine | DX: R06.00 Dyspnea, unspecified (principal); J98.4 Other disorders of lung | CPT/HCPCS: 71046 ==

== ENCOUNTER 2020-09-05 10:19 | Outpatient (CLI) | payer BC, MEDICARE | END 2020-09-05 10:20 | disposition home or self-care (01) | LOC: BICRAD 10:19 | PROVIDERS: ATTEND Internal Medicine Critical Care Medicine | DX: R06.00 Dyspnea, unspecified (principal); J98.4 Other disorders of lung | CPT/HCPCS: 71046 ==